=== PATIENT | female | born 1930 | race Caucasian/White ===

== ENCOUNTER 2017-01-27 23:42 | Inpatient (IN) | payer MEDICARE ==
[~2017-01-27] VITALS: Ht 165.1 cm; Wt 85.0 kg
[2017-01-28] MEDS ORDERED: MORPHINE SULFATE 4 MG/ML, 1ML ONE (00:15)
[2017-01-28] MEDS ORDERED: ONDANSETRON 2MG/ML, 2ML ONE ×2 (00:15→13:11)
[2017-01-28] MEDS ORDERED: ONDANSETRON 2MG/ML, 2ML IVPush ONE (00:30)
[2017-01-28] MEDS ORDERED: MORPHINE SULFATE 4 MG/ML, 1ML IVPush PRN ×2 (00:30→03:30)
[2017-01-28] MEDS ORDERED: SODIUM CHLORIDE 0.9% 1,000ML IVBOLUS ONE ×2 (00:30→03:30)
[2017-01-28 00:41] LABS: BLOOD UREA NITROGEN 15 mg/dL (7-18)
[2017-01-28 00:53] LABS: HEMATOCRIT 37.1 % (34.6-47.8); HEMOGLOBIN 12.5 g/dL (11.7-16.4); WHITE BLOOD COUNT 7.7 x10^3/uL (3.4-10)
[2017-01-28 01:04] LABS: ASPARTATE AMINO TRANSFERASE 34 U/L (15-37)
[2017-01-28] MEDS ORDERED: ATOR20TA PO (01:05)
[2017-01-28] MEDS ORDERED: GABA300C10 PO (01:05)
[2017-01-28] MEDS ORDERED: AMIO200T42 PO (01:05)
[2017-01-28] MEDS ORDERED: ASPI-515 PO (01:05)
[2017-01-28] MEDS ORDERED: CYAN100063 PEG (01:05)
[2017-01-28] MEDS ORDERED: RIVA15TA PO (01:05)
[2017-01-28] MEDS ORDERED: FLUO10CA7 PO (01:05)
[2017-01-28] MEDS ORDERED: ALPR0.254 PO (01:05)
[2017-01-28] MEDS ORDERED: LEVO50TA5 PO (01:05)
[2017-01-28] MEDS ORDERED: METO-99 PO (01:05)
[2017-01-28 01:14] LABS: IS PT STATUS REG ER OR PRE ER? YES
[2017-01-28] MEDS ORDERED: hydrALAzine 20 MG/ML, 1ML IV ONE (01:30)
[2017-01-28] MEDS ORDERED: OMNIPAQUE 350 MG/ML, 100ML BOTTLE ONE (01:33)
[2017-01-28] MEDS ORDERED: hydrALAzine 20 MG/ML, 1ML ONE (01:43)
[2017-01-28] MEDS ORDERED: SODIUM CHLORIDE 0.9% 1,000 ML IV ONE (03:07)
[2017-01-28] MEDS ORDERED: PIPERACILLIN/TAZO/PMX 3.375GM 50 ML ONE (03:26)
[2017-01-28] MEDS ORDERED: PIPERACILLIN/TAZO/PMX 3.375GM 50 ML IVPB ONE (03:30)
[2017-01-28] MEDS ORDERED: ONDANSETRON 2MG/ML, 2ML IVPush PRN ×3 (03:30→13:30)
[2017-01-28] MEDS ORDERED: hydrALAzine 20 MG/ML, 1ML IVPush PRN (04:00)
[2017-01-28] MEDS ORDERED: PROMETHAZINE 25 MG/ML, 1ML IM PRN (04:00)
[2017-01-28] MEDS ORDERED: BISACODYL 10 MG SUPP PR PRN (04:00)
[2017-01-28] MEDS: PIPERACILLIN/TAZO/PMX 3.375GM 50 ML IV SCH ×4 (04:00→23:11)
[2017-01-28] MEDS: LACTATED RINGERS 1,000 ML IV SCH ×2 (04:50→21:41)
[2017-01-28] MEDS: XANAX MC SCH ×3 (05:00→21:00)
[2017-01-28 07:05] VITALS: BP 174/75
[2017-01-28] MEDS: CYANOCOBALAMIN 1,000 MCG TABLET PEG SCH (07:57)
[2017-01-28] MEDS: FLUOXETINE 10 MG CAP PO SCH (07:57)
[2017-01-28] MEDS: METOPROLOL TARTRATE 100 MG TABLET PO SCH ×2 (07:58→20:41)
[2017-01-28] MEDS: LEVOTHYROXINE 50 MCG TABLET PO SCH (07:58)
[2017-01-28] MEDS: GABAPENTIN 300 MG CAPSULE PO SCH (07:58)
[2017-01-28] MEDS: AMIODARONE 200 MG TABLET PO SCH (07:58)
[2017-01-28] MEDS: morphine SULFATE 10 MG/ML, 1ML IVPush PRN ×2 (08:05→11:57)
[2017-01-28] MEDS ORDERED: BUPIVACAINE/PF-EPI 0.5% 1:200K ONE (09:24)
[2017-01-28 09:37] LABS: HEMATOCRIT 37.9 % (34.6-47.8); HEMOGLOBIN 12.6 g/dL (11.7-16.4); WHITE BLOOD COUNT 10.7 x10^3/uL (3.4-10)
[2017-01-28 09:43] LABS: BLOOD UREA NITROGEN 12 mg/dL (7-18)
[2017-01-28 09:47] LABS: ASPARTATE AMINO TRANSFERASE 23 U/L (15-37)
[2017-01-28] MEDS ORDERED: FENTANYL PF 250 MCG/5ML ONE (12:31)
[2017-01-28] MEDS ORDERED: MIDAZOLAM 1 MG/ML, 2ML ONE (12:31)
[2017-01-28] MEDS ORDERED: DEXAMETHASONE 4 MG/ML, 1ML ONE (13:11)
[2017-01-28] MEDS ORDERED: GLYCOPYRROLATE 0.2MG/1ML ONE (13:11)
[2017-01-28] MEDS ORDERED: SUCCINYLCHOLINE 20 MG/ML, 10ML ONE (13:11)
[2017-01-28] MEDS ORDERED: NEOSTIGMINE 1 MG/ML, 10ML ONE (13:11)
[2017-01-28] MEDS ORDERED: PROPOFOL 10 MG/ML, 20ML ONE (13:11)
[2017-01-28] MEDS ORDERED: ROCURONIUM 10 MG/ML ONE (13:11)
[2017-01-28] MEDS ORDERED: MIDAZOLAM 1 MG/ML, 2ML IV PRN (13:30)
[2017-01-28] MEDS ORDERED: FENTANYL PF 100 MCG/2ML IV PRN (13:30)
[2017-01-28] MEDS ORDERED: HYDROmorphone 1 MG/ML, 1ML IV PRN (13:30)
[2017-01-28 18:50] VITALS: BP 149/72
[2017-01-28] MEDS: ATORVASTATIN 20 MG TABLET PO SCH (20:41)
[2017-01-29] VITALS: BP 139/65
[2017-01-29] MEDS: XANAX MC SCH (04:07)
[2017-01-29 04:41] VITALS: BP 140/55
[2017-01-29] MEDS: morphine SULFATE 10 MG/ML, 1ML IVPush PRN ×2 (05:07→21:44)
[2017-01-29] MEDS: PIPERACILLIN/TAZO/PMX 3.375GM 50 ML IV SCH ×4 (05:17→23:37)
[2017-01-29 05:43] LABS: HEMATOCRIT 36.2 % (34.6-47.8); HEMOGLOBIN 12.1 g/dL (11.7-16.4); WHITE BLOOD COUNT 12.6 x10^3/uL (3.4-10)
[2017-01-29 05:55] LABS: BLOOD UREA NITROGEN 12 mg/dL (7-18)
[2017-01-29 08:19] VITALS: BP 131/64
[2017-01-29] MEDS: AMIODARONE 200 MG TABLET PO SCH (08:44)
[2017-01-29] MEDS: FLUOXETINE 10 MG CAP PO SCH (08:44)
[2017-01-29] MEDS: METOPROLOL TARTRATE 100 MG TABLET PO SCH ×2 (08:44→20:29)
[2017-01-29] MEDS: CYANOCOBALAMIN 1,000 MCG TABLET PEG SCH (08:44)
[2017-01-29] MEDS: GABAPENTIN 300 MG CAPSULE PO SCH (08:45)
[2017-01-29] MEDS: LEVOTHYROXINE 50 MCG TABLET PO SCH (08:45)
[2017-01-29] MEDS: LACTATED RINGERS 1,000 ML IV SCH (12:55)
[2017-01-29 13:41] VITALS: BP 107/51
[2017-01-29 19:27] VITALS: BP 166/70
[2017-01-29] MEDS: ATORVASTATIN 20 MG TABLET PO SCH (20:29)
[2017-01-30 03:55] VITALS: BP_SYST 105; BP_SYST 190; BP_DIAS 58; BP_DIAS 72
[2017-01-30] MEDS: LACTATED RINGERS 1,000 ML IV SCH (05:07)
[2017-01-30] MEDS: PIPERACILLIN/TAZO/PMX 3.375GM 50 ML IV SCH (05:07)
[2017-01-30 05:46] LABS: HEMATOCRIT 32.7 % (34.6-47.8); HEMOGLOBIN 10.9 g/dL (11.7-16.4); WHITE BLOOD COUNT 9.9 x10^3/uL (3.4-10)
[2017-01-30 06:10] LABS: ASPARTATE AMINO TRANSFERASE 31 U/L (15-37); BLOOD UREA NITROGEN 18 mg/dL (7-18)
[2017-01-30 08:22] VITALS: BP 137/52
[2017-01-30] MEDS: CYANOCOBALAMIN 1,000 MCG TABLET PEG SCH (08:52)
[2017-01-30] MEDS: AMIODARONE 200 MG TABLET PO SCH (08:53)
[2017-01-30] MEDS: GABAPENTIN 300 MG CAPSULE PO SCH (08:53)
[2017-01-30] MEDS: METOPROLOL TARTRATE 100 MG TABLET PO SCH (08:53)
[2017-01-30] MEDS: FLUOXETINE 10 MG CAP PO SCH (08:53)
[2017-01-30] MEDS: LEVOTHYROXINE 50 MCG TABLET PO SCH (08:54)
[2017-01-30] MEDS ORDERED: AMOX1TAB12 PO (10:26)
[2017-01-30] MEDS ORDERED: ACID1TAB7 PO (10:26)
[2017-01-30] MEDS ORDERED: LACTOBACILLUS CHEW TABLET PO SCH (16:00)
[2017-01-30] MEDS ORDERED: AMOXICILLIN/CLAV 875-125MG TABLET PO SCH (21:00)
== END 2017-01-30 17:05 | disposition home health service (06) | DRG 417 ==
LOC: ED 23:59 → EDIP 01-28 03:07 → 4NOR 01-28 04:25
PROVIDERS: ATTEND Internal Medicine
PROC: 0T9B70Z Drainage of Bladder with Drainage Device, Via Natural or Artificial Opening (ICD-10-PCS; 2017-01-28)
PROC: 0FT44ZZ Resection of Gallbladder, Percutaneous Endoscopic Approach (ICD-10-PCS; principal; 2017-01-28 13:15)
DX: K80.00 Calculus of gallbladder with acute cholecystitis without obstruction (principal); N17.0 Acute kidney failure with tubular necrosis; E44.0 Moderate protein-calorie malnutrition; I11.9 Hypertensive heart disease without heart failure; I48.2 Chronic atrial fibrillation; J84.10 Pulmonary fibrosis, unspecified; K82.1 Hydrops of gallbladder; E53.8 Deficiency of other specified B group vitamins; Z68.31 Body mass index [BMI] 31.0-31.9, adult; D63.8 Anemia in other chronic diseases classified elsewhere; E03.9 Hypothyroidism, unspecified; E78.00 Pure hypercholesterolemia, unspecified; E78.5 Hyperlipidemia, unspecified; F01.50 Vascular dementia, unspecified severity, without behavioral disturbance, psychotic disturbance, mood disturbance, and anxiety; I69.320 Aphasia following cerebral infarction; Z79.01 Long term (current) use of anticoagulants; Z87.891 Personal history of nicotine dependence; Z88.8 Allergy status to other drugs, medicaments and biological substances
CPT/HCPCS: 36415; 71010; 74177; 76700; 80048; 80053; 81003; 83690; 84484; 85025; 85610; 85730; 88304; 93005; 96361; 96374; 96375; J1100; J2250; J2405; J2543; J2704; J2710; J3010; J3490; Q9967; J0330; J0360; J2270; J7030; J7120

== ENCOUNTER 2017-02-01 11:44 | Inpatient (IN) | payer MEDICARE ==
[~2017-02-01] VITALS: Ht 154.9 cm; Wt 88.2 kg
[~2017-02-01 11:44] MED LIST: ACID1TAB7 PO; ALPR0.254 PO; AMIO200T42 PO; AMOX1TAB12 PO; ASPI-515 PO; ATOR20TA PO; CYAN100063 PEG; FLUO10CA7 PO; GABA300C10 PO; LEVO50TA5 PO; METO-99 PO; RIVA15TA PO
[2017-02-01] MEDS ORDERED: SODIUM CHLORIDE 0.9% 1,000 ML IV ONE (11:46)
[2017-02-01] MEDS ORDERED: HYDROmorphone 1 MG/ML, 1ML ONE ×2 (12:00→14:19)
[2017-02-01] MEDS ORDERED: SODIUM CHLORIDE FLUSH 10ML SYR IVF ONE (12:00)
[2017-02-01] MEDS ORDERED: ONDANSETRON 2MG/ML, 2ML IVPush ONE (12:00)
[2017-02-01] MEDS ORDERED: ONDANSETRON 2MG/ML, 2ML ONE (12:00)
[2017-02-01] MEDS: HYDROmorphone 1 MG/ML, 1ML IVPush PRN ×2 (12:06→14:29)
[2017-02-01 12:34] LABS: HEMATOCRIT 33.4 % (34.6-47.8); WHITE BLOOD COUNT 7.4 x10^3/uL (3.4-10)
[2017-02-01 12:45] LABS: ASPARTATE AMINO TRANSFERASE 23 U/L (15-37); BLOOD UREA NITROGEN 14 mg/dL (7-18)
[2017-02-01] MEDS ORDERED: OMNIPAQUE 350 MG/ML, 100ML BOTTLE ONE (13:20)
[2017-02-01] MEDS ORDERED: CIPROFLOXACIN/PMX 400MG/200ML 200 ML IV ONE (14:30)
[2017-02-01] MEDS ORDERED: METRONIDAZOLE PMX 500MG/100ML 100 ML IV ONE (14:30)
[2017-02-01] MEDS ORDERED: NS + 20MEQ KCL 1,000 ML IV SCH (15:06)
[2017-02-01] MEDS ORDERED: CIPROFLOXACIN/PMX 400MG/200ML 200 ML ONE (15:06)
[2017-02-01] MEDS ORDERED: POLYETHYLENE GLYCOL 17 GM PACKET PO PRN (15:30)
[2017-02-01] MEDS ORDERED: DOCUSATE 100 MG CAPSULE PO PRN (15:30)
[2017-02-01] MEDS ORDERED: ONDANSETRON 2MG/ML, 2ML IVPush PRN (15:30)
[2017-02-01] MEDS ORDERED: morphine SULFATE 10 MG/ML, 1ML IVPush PRN (15:30)
[2017-02-01] MEDS: LACTOBACILLUS CHEW TABLET PO SCH ×2 (16:00→20:41)
[2017-02-01] MEDS: CIPROFLOXACIN/PMX 400MG/200ML 200 ML IV SCH (16:09)
[2017-02-01 16:22] VITALS: BP 147/38
[2017-02-01] MEDS: METRONIDAZOLE PMX 500MG/100ML 100 ML IV SCH (17:20)
[2017-02-01 20:05] VITALS: BP 145/72
[2017-02-01] MEDS: ATORVASTATIN 20 MG TABLET PO SCH (20:44)
[2017-02-01] MEDS: METOPROLOL TARTRATE 100 MG TABLET PO SCH (20:46)
[2017-02-02] MEDS: METRONIDAZOLE PMX 500MG/100ML 100 ML IV SCH ×3 (00:17→18:35)
[2017-02-02 02:32] VITALS: BP 148/66
[2017-02-02] MEDS: CIPROFLOXACIN/PMX 400MG/200ML 200 ML IV SCH ×2 (04:32→16:32)
[2017-02-02] MEDS: LEVOTHYROXINE 50 MCG TABLET PO SCH (04:35)
[2017-02-02 07:10] VITALS: BP 161/69
[2017-02-02 07:30] VITALS: BP 163/62
[2017-02-02] MEDS: AMIODARONE 200 MG TABLET PO SCH (07:35)
[2017-02-02] MEDS: ASPIRIN 81 MG TABLET EC PO SCH (07:35)
[2017-02-02] MEDS: METOPROLOL TARTRATE 100 MG TABLET PO SCH ×2 (07:35→20:31)
[2017-02-02] MEDS: LACTOBACILLUS CHEW TABLET PO SCH ×3 (07:36→20:30)
[2017-02-02] MEDS: GABAPENTIN 300 MG CAPSULE PO SCH (07:36)
[2017-02-02] MEDS: RIVAROXABAN 15 MG TABLET PO SCH (07:36)
[2017-02-02] MEDS: FLUOXETINE 10 MG CAP PO SCH (07:37)
[2017-02-02 14:09] VITALS: BP 162/84
[2017-02-02 19:32] VITALS: BP 148/74
[2017-02-02] MEDS: ATORVASTATIN 20 MG TABLET PO SCH (20:30)
[2017-02-03 02:16] VITALS: BP 110/75
[2017-02-03] MEDS: METRONIDAZOLE PMX 500MG/100ML 100 ML IV SCH ×2 (03:02→10:47)
[2017-02-03] MEDS: CIPROFLOXACIN/PMX 400MG/200ML 200 ML IV SCH ×2 (05:13→16:39)
[2017-02-03] MEDS: LEVOTHYROXINE 50 MCG TABLET PO SCH (05:13)
[2017-02-03 07:58] VITALS: BP 156/69
[2017-02-03] MEDS: AMIODARONE 200 MG TABLET PO SCH (08:27)
[2017-02-03] MEDS: GABAPENTIN 300 MG CAPSULE PO SCH (08:27)
[2017-02-03] MEDS: FLUOXETINE 10 MG CAP PO SCH (08:27)
[2017-02-03] MEDS: LACTOBACILLUS CHEW TABLET PO SCH ×2 (08:27→16:39)
[2017-02-03] MEDS: ASPIRIN 81 MG TABLET EC PO SCH (08:27)
[2017-02-03] MEDS: RIVAROXABAN 15 MG TABLET PO SCH (08:29)
[2017-02-03] MEDS: METOPROLOL TARTRATE 100 MG TABLET PO SCH (08:30)
[2017-02-03] MEDS ORDERED: METR500T PO (13:59)
[2017-02-03] MEDS ORDERED: CIPR500T3 PO (13:59)
[2017-02-03 14:30] VITALS: BP 147/78
== END 2017-02-03 18:21 | disposition home or self-care (01) | DRG 392 ==
LOC: ED 14:07 → EDIP 14:18 → SUATTDRO 14:54 → 4NOR 15:47
PROVIDERS: ADMIT Family Medicine; ATTEND Family Medicine
PROC: 0T9B70Z Drainage of Bladder with Drainage Device, Via Natural or Artificial Opening (ICD-10-PCS; principal; 2017-02-01)
DX: A09 Infectious gastroenteritis and colitis, unspecified (principal); J84.9 Interstitial pulmonary disease, unspecified; E44.0 Moderate protein-calorie malnutrition; D68.69 Other thrombophilia; I48.91 Unspecified atrial fibrillation; I11.9 Hypertensive heart disease without heart failure; K76.0 Fatty (change of) liver, not elsewhere classified; E03.9 Hypothyroidism, unspecified; E78.5 Hyperlipidemia, unspecified; E78.00 Pure hypercholesterolemia, unspecified; K82.8 Other specified diseases of gallbladder; Z66 Do not resuscitate; Z79.01 Long term (current) use of anticoagulants; Z87.891 Personal history of nicotine dependence; Z90.49 Acquired absence of other specified parts of digestive tract; I69.322 Dysarthria following cerebral infarction; Z68.36 Body mass index [BMI] 36.0-36.9, adult; Z90.710 Acquired absence of both cervix and uterus; Z88.5 Allergy status to narcotic agent; Z88.8 Allergy status to other drugs, medicaments and biological substances
CPT/HCPCS: 36415; 74022; 74177; 80053; 81003; 83690; 85025; 87040; 87324; 96361; 96374; 96375; 96376; J0744; J1170; J2405; J3480; Q9967; J7030

== ENCOUNTER 2017-12-30 13:12 | Inpatient (IN) | payer MEDICARE ==
[~2017-12-30] VITALS: Ht 167.6 cm; Wt 79.1 kg
[~2017-12-30 13:12] MED LIST changes: +CEFD300C37 PO; +CIPR500T3 PO; +FURO-92 PO; +METR500T PO; +NITR100C PO; +PHEN100T90 PO; +POTA10TA31 PO
[2017-12-30 13:49] LABS: BASOPHILS # (AUTO) 0.02 x10^3/uL (0-0.1); BASOPHILS % (AUTO) 0 % (0-1); EOSINOPHILS # (AUTO) 0.09 x10^3/uL (0-0.4); EOSINOPHILS % (AUTO) 1 % (1-7); LYMPHOCYTES # (AUTO) 1.45 x10^3/uL (1-3.4); LYMPHOCYTES % (AUTO) 22 % (22-44); MD NO; MEAN CORPUSCULAR HEMOGLOBIN 31.2 pg (27.0-34.8); MEAN CORPUSCULAR HGB CONC 33.8 g/dL (32.4-35.8); MEAN CORPUSCULAR VOLUME 92.2 fL (80-100); MONOCYTES # (AUTO) 0.41 x10^3/uL (0.2-0.8); MONOCYTES % (AUTO) 6 % (2-9); NEUTROPHILS # (AUTO) 4.76 x10^3/uL (1.8-6.8); NEUTROPHILS % (AUTO) 71 % (42-75); PLATELET COUNT 266 x10^3/uL (130-400); RED BLOOD COUNT 4.12 x10^6/uL (3.82-5.3); RED CELL DISTRIBUTION WIDTH 13.8 % (9.6-15.2)
[2017-12-30 14:02] LABS: ALBUMIN 3.2 g/dL (3.4-5.0); ANION GAP 9 mmol/L (5-15); CALCIUM 8.8 mg/dL (8.5-10.1); CHLORIDE 110 mmol/L (98-107)
[2017-12-30 14:05] LABS: ALANINE AMINOTRANSFERASE 49 U/L (12-78); ALKALINE PHOSPHATASE 93 U/L (45-117); BILIRUBIN,TOTAL 0.6 mg/dL (0.2-1.0); TOTAL PROTEIN 6.5 g/dL (6.4-8.2)
[2017-12-30 14:10] LABS: CULTURE INDICATED? YES; MICROSCOPIC INDICATED
[2017-12-30] MEDS ORDERED: CEFTRIAXONE PMX 1GM/50ML 50 ML ONE (14:51)
[2017-12-30] MEDS ORDERED: SODIUM CHLORIDE 0.9% 1,000ML IVBOLUS ONE (15:00)
[2017-12-30] MEDS ORDERED: CEFTRIAXONE PMX 1GM/50ML 50 ML IV ONE (15:00)
[2017-12-30] MEDS ORDERED: FLUT15.88 NAS (15:51)
[2017-12-30] MEDS ORDERED: LOSA100T6 PO (15:51)
[2017-12-30] MEDS ORDERED: HYDR-3342 PO (15:51)
[2017-12-30] MEDS ORDERED: METO25TA91 PO (15:51)
[2017-12-30] MEDS ORDERED: PHARMACY MAY ADJ FOR RENAL FX MC PRN (16:00)
[2017-12-30] MEDS ORDERED: PHENAZOPYRIDINE 100 MG TABLET PO PRN (16:00)
[2017-12-30] MEDS ORDERED: DOCUSATE 100 MG CAPSULE PO PRN (16:00)
[2017-12-30] MEDS ORDERED: ONDANSETRON ODT 4 MG PO PRN (16:00)
[2017-12-30] MEDS ORDERED: POLYETHYLENE GLYCOL 17 GM PACKET PO PRN (16:00)
[2017-12-30] MEDS ORDERED: ALPRAZOLAM 0.25 MG PO PRN (16:00)
[2017-12-30 16:49] LABS: THYROID STIMULATING HORMONE 4.98 mIU/L (0.358-3.740)
[2017-12-30 17:58] VITALS: BP 214/77
[2017-12-30] MEDS ORDERED: CEFTRIAXONE PMX 1GM/50ML 50 ML IV SCH (18:00)
[2017-12-30] MEDS ORDERED: ALPRAZOLAM 0.25 MG MC SCH (18:00)
[2017-12-30] MEDS: LACTOBACILLUS CHEW TABLET PO SCH ×2 (18:02→21:00)
[2017-12-30] MEDS: SODIUM CHLORIDE 0.9% 1,000 ML IV SCH (18:02)
[2017-12-30 19:25] VITALS: BP 178/62
[2017-12-30] MEDS: ATORVASTATIN 20 MG TABLET PO SCH (21:00)
[2017-12-30] MEDS: GABAPENTIN 300 MG CAPSULE PO SCH (21:00)
[2017-12-30] MEDS: FLUTICASONE NASAL SPRAY 16GM NAS SCH (21:00)
[2017-12-30] MEDS ORDERED: METOPROLOL TARTRATE 100 MG TABLET PO SCH (21:00)
[2017-12-30] MEDS: hydrALAzine 20 MG/ML, 1ML IV PRN (21:59)
[2017-12-31 00:30] VITALS: BP 196/94
[2017-12-31] MEDS: hydrALAzine 20 MG/ML, 1ML IV PRN (00:37)
[2017-12-31 01:40] VITALS: BP 165/72
[2017-12-31] MEDS: SODIUM CHLORIDE 0.9% 1,000 ML IV SCH (03:57)
[2017-12-31 04:58] LABS: BASOPHILS # (AUTO) 0.01 x10^3/uL (0-0.1); BASOPHILS % (AUTO) 0 % (0-1); EOSINOPHILS # (AUTO) 0.18 x10^3/uL (0-0.4); EOSINOPHILS % (AUTO) 3 % (1-7); LYMPHOCYTES # (AUTO) 0.96 x10^3/uL (1-3.4); LYMPHOCYTES % (AUTO) 16 % (22-44); MD NO; MEAN CORPUSCULAR HEMOGLOBIN 31.2 pg (27.0-34.8); MEAN CORPUSCULAR HGB CONC 33.7 g/dL (32.4-35.8); MEAN CORPUSCULAR VOLUME 92.4 fL (80-100); MEAN PLATELET VOLUME 9.7 fL (7.4-10.4); MONOCYTES # (AUTO) 0.47 x10^3/uL (0.2-0.8); MONOCYTES % (AUTO) 8 % (2-9); NEUTROPHILS # (AUTO) 4.51 x10^3/uL (1.8-6.8); NEUTROPHILS % (AUTO) 74 % (42-75); PLATELET COUNT 249 x10^3/uL (130-400); RED BLOOD COUNT 4.06 x10^6/uL (3.82-5.3); RED CELL DISTRIBUTION WIDTH 13.7 % (9.6-15.2)
[2017-12-31 05:06] LABS: ANION GAP 10 mmol/L (5-15); CALCIUM 8.6 mg/dL (8.5-10.1); CHLORIDE 112 mmol/L (98-107)
[2017-12-31 05:07] LABS: CREATININE 1.27 mg/dL (0.55-1.02)
[2017-12-31] MEDS: LEVOTHYROXINE 50 MCG TABLET PO SCH (05:33)
[2017-12-31 07:20] VITALS: BP 153/69
[2017-12-31] MEDS: CYANOCOBALAMIN 1,000 MCG TABLET PEG SCH (09:00)
[2017-12-31] MEDS: METOPROLOL SUCCINATE 25 MG TAB.ER.24H PO SCH (09:00)
[2017-12-31 09:30] VITALS: BP 131/62
[2017-12-31] MEDS: LACTOBACILLUS CHEW TABLET PO SCH ×3 (09:48→20:36)
[2017-12-31] MEDS: FLUOXETINE 10 MG CAP PO SCH (09:49)
[2017-12-31] MEDS: RIVAROXABAN 15 MG TABLET PO SCH (09:49)
[2017-12-31] MEDS: ASPIRIN 81 MG TABLET EC PO SCH (09:49)
[2017-12-31] MEDS: AMIODARONE 200 MG TABLET PO SCH (09:49)
[2017-12-31 14:45] VITALS: BP 164/64
[2017-12-31 19:11] VITALS: BP 183/69
[2017-12-31] MEDS: ATORVASTATIN 20 MG TABLET PO SCH (20:36)
[2017-12-31] MEDS: GABAPENTIN 300 MG CAPSULE PO SCH (20:36)
[2017-12-31] MEDS: FLUTICASONE NASAL SPRAY 16GM NAS SCH (21:01)
[2018-01-01 01:17] VITALS: BP 173/50
[2018-01-01 04:42] LABS: ALANINE AMINOTRANSFERASE 39 U/L (12-78); ALBUMIN 2.9 g/dL (3.4-5.0); ANION GAP 9 mmol/L (5-15); CALCIUM 8.6 mg/dL (8.5-10.1); CHLORIDE 112 mmol/L (98-107); CREATININE 1.35 mg/dL (0.55-1.02)
[2018-01-01 04:45] LABS: ALKALINE PHOSPHATASE 82 U/L (45-117); BILIRUBIN,TOTAL 0.6 mg/dL (0.2-1.0); TOTAL PROTEIN 5.9 g/dL (6.4-8.2)
[2018-01-01] MEDS: LEVOTHYROXINE 50 MCG TABLET PO SCH (06:09)
[2018-01-01 08:25] VITALS: BP 182/85
[2018-01-01] MEDS: AMIODARONE 200 MG TABLET PO SCH (08:56)
[2018-01-01] MEDS: METOPROLOL SUCCINATE 25 MG TAB.ER.24H PO SCH (08:56)
[2018-01-01] MEDS: RIVAROXABAN 15 MG TABLET PO SCH (08:57)
[2018-01-01] MEDS: LACTOBACILLUS CHEW TABLET PO SCH ×3 (08:57→21:27)
[2018-01-01] MEDS: CYANOCOBALAMIN 1,000 MCG TABLET PEG SCH (08:57)
[2018-01-01] MEDS: FLUOXETINE 10 MG CAP PO SCH (08:57)
[2018-01-01] MEDS: ASPIRIN 81 MG TABLET EC PO SCH (08:57)
[2018-01-01 09:05] VITALS: BP 166/77
[2018-01-01 13:17] VITALS: BP 169/69
[2018-01-01] MEDS: CEFTRIAXONE 1,000 MG in SODIUM CHLORIDE 0.9% 50 ML IV SCH (16:54)
[2018-01-01 20:00] VITALS: BP 155/71
[2018-01-01] MEDS: GABAPENTIN 300 MG CAPSULE PO SCH (21:27)
[2018-01-01] MEDS: ATORVASTATIN 20 MG TABLET PO SCH (21:27)
[2018-01-01] MEDS: FLUTICASONE NASAL SPRAY 16GM NAS SCH (21:28)
[2018-01-02 01:48] VITALS: BP 164/67
[2018-01-02 05:36] LABS: ALBUMIN 2.8 g/dL (3.4-5.0); ANION GAP 9 mmol/L (5-15); CALCIUM 8.7 mg/dL (8.5-10.1); CHLORIDE 112 mmol/L (98-107)
[2018-01-02 05:41] LABS: ALANINE AMINOTRANSFERASE 38 U/L (12-78); ALKALINE PHOSPHATASE 85 U/L (45-117); BILIRUBIN,TOTAL 0.7 mg/dL (0.2-1.0); CREATININE 1.27 mg/dL (0.55-1.02); TOTAL PROTEIN 5.9 g/dL (6.4-8.2)
[2018-01-02] MEDS: LEVOTHYROXINE 50 MCG TABLET PO SCH (06:06)
[2018-01-02 07:06] VITALS: BP 182/72
[2018-01-02] MEDS ORDERED: CEFD300C37 PO (07:46)
[2018-01-02] MEDS ORDERED: LACT1CAP24 PO (07:46)
[2018-01-02] MEDS: ASPIRIN 81 MG TABLET EC PO SCH (07:53)
[2018-01-02] MEDS: RIVAROXABAN 15 MG TABLET PO SCH (07:53)
[2018-01-02] MEDS: FLUOXETINE 10 MG CAP PO SCH (07:53)
[2018-01-02] MEDS: LACTOBACILLUS CHEW TABLET PO SCH ×2 (07:53→17:01)
[2018-01-02] MEDS: METOPROLOL SUCCINATE 25 MG TAB.ER.24H PO SCH (07:53)
[2018-01-02] MEDS: CYANOCOBALAMIN 1,000 MCG TABLET PEG SCH (07:53)
[2018-01-02] MEDS: AMIODARONE 200 MG TABLET PO SCH (07:53)
[2018-01-02 07:55] VITALS: BP 175/73
[2018-01-02 12:37] VITALS: BP 152/70
[2018-01-02] MEDS: CEFTRIAXONE 1,000 MG in SODIUM CHLORIDE 0.9% 50 ML IV SCH (17:01)
== END 2018-01-02 18:05 | disposition home or self-care (01) | DRG 682 ==
LOC: ED 15:55 → EDIP 15:56 → ED 16:56 → 3NE 17:14
PROVIDERS: ADMIT Hospitalist; ATTEND Internal Medicine
PROC: 0T9B70Z Drainage of Bladder with Drainage Device, Via Natural or Artificial Opening (ICD-10-PCS; principal; 2017-12-30)
DX: N17.0 Acute kidney failure with tubular necrosis (principal); G93.40 Encephalopathy, unspecified; E43 Unspecified severe protein-calorie malnutrition; D68.59 Other primary thrombophilia; N39.0 Urinary tract infection, site not specified; Z68.28 Body mass index [BMI] 28.0-28.9, adult; Z88.8 Allergy status to other drugs, medicaments and biological substances; E03.9 Hypothyroidism, unspecified; E78.00 Pure hypercholesterolemia, unspecified; F02.80 Dementia in other diseases classified elsewhere, unspecified severity, without behavioral disturbance, psychotic disturbance, mood disturbance, and anxiety; G30.1 Alzheimer's disease with late onset; I11.9 Hypertensive heart disease without heart failure; I48.91 Unspecified atrial fibrillation; Z66 Do not resuscitate; R47.02 Dysphasia; Z79.01 Long term (current) use of anticoagulants; Z86.73 Personal history of transient ischemic attack (TIA), and cerebral infarction without residual deficits; Z87.891 Personal history of nicotine dependence; Z90.710 Acquired absence of both cervix and uterus
CPT/HCPCS: 36415; 71045; 80048; 80053; 81001; 82550; 82607; 84443; 85025; 87040; 87077; 87086; 87186; 93005; 99285; J0696; J0360; J7030

== ENCOUNTER 2018-03-01 17:36 | Emergency (ER) | payer MEDICARE ==
[~2018-03-01] VITALS: Ht 167.6 cm; Wt 70.0 kg
[~2018-03-01 17:36] MED LIST changes: +FLUT15.88 NAS; +HYDR-3342 PO; +LACT1CAP24 PO; +LOSA100T7 PO; +METO25TA91 PO
[2018-03-01] MEDS ORDERED: KETOROLAC 30 MG/1 ML IM ONE (18:00)
[2018-03-01] MEDS ORDERED: PLEASE ENTER HEIGHT AND WEIGHT MC SCH (18:00)
[2018-03-01 18:02] LABS: BASOPHILS # (AUTO) 0.08 x10^3/uL (0-0.1); BASOPHILS % (AUTO) 1 % (0-1); EOSINOPHILS # (AUTO) 0.13 x10^3/uL (0-0.4); EOSINOPHILS % (AUTO) 2 % (1-7); LYMPHOCYTES # (AUTO) 1.17 x10^3/uL (1-3.4); LYMPHOCYTES % (AUTO) 17 % (22-44); MD NO; MEAN CORPUSCULAR HEMOGLOBIN 31.5 pg (27.0-34.8); MEAN CORPUSCULAR HGB CONC 34.4 g/dL (32.4-35.8); MEAN CORPUSCULAR VOLUME 91.6 fL (80-100); MEAN PLATELET VOLUME 9.1 fL (7.4-10.4); MONOCYTES # (AUTO) 0.57 x10^3/uL (0.2-0.8); MONOCYTES % (AUTO) 8 % (2-9); NEUTROPHILS # (AUTO) 4.98 x10^3/uL (1.8-6.8); NEUTROPHILS % (AUTO) 72 % (42-75); PLATELET COUNT 236 x10^3/uL (130-400); RED BLOOD COUNT 4.09 x10^6/uL (3.82-5.3); RED CELL DISTRIBUTION WIDTH 14.1 % (9.6-15.2)
[2018-03-01 18:15] LABS: ALANINE AMINOTRANSFERASE 48 U/L (12-78); ANION GAP 4 mmol/L (5-15); CALCIUM 8.1 mg/dL (8.5-10.1); CHLORIDE 112 mmol/L (98-107)
[2018-03-01 18:18] LABS: ALKALINE PHOSPHATASE 146 U/L (45-117); BILIRUBIN,TOTAL 0.4 mg/dL (0.2-1.0); CREATININE 1.66 mg/dL (0.55-1.02); TOTAL PROTEIN 6.4 g/dL (6.4-8.2)
[2018-03-01 18:30] LABS: MICROSCOPIC INDICATED
[2018-03-01 18:31] LABS: CULTURE INDICATED? YES
[2018-03-01 19:05] VITALS: BP 104/54
== END 2018-03-01 19:35 | disposition home or self-care (01) ==
LOC: ED 18:40
DX: R41.82 Altered mental status, unspecified (principal); N30.00 Acute cystitis without hematuria; I10 Essential (primary) hypertension; E78.00 Pure hypercholesterolemia, unspecified; E03.9 Hypothyroidism, unspecified; Z90.49 Acquired absence of other specified parts of digestive tract; Z90.710 Acquired absence of both cervix and uterus; Z87.891 Personal history of nicotine dependence
CPT/HCPCS: 36415; 70450; 80053; 81001; 85025; 87077; 87086; 87186; 99285

== ENCOUNTER 2018-03-03 22:05 | Inpatient (IN) | payer MEDICARE ==
[~2018-03-03] VITALS: Ht 162.6 cm; Wt 79.8 kg
[2018-03-03 23:19] LABS: ALANINE AMINOTRANSFERASE 42 U/L (12-78); ALBUMIN 2.9 g/dL (3.4-5.0); ANION GAP 7 mmol/L (5-15); CALCIUM 8.9 mg/dL (8.5-10.1); CHLORIDE 108 mmol/L (98-107); CREATININE 1.58 mg/dL (0.55-1.02)
[2018-03-03 23:21] LABS: ALKALINE PHOSPHATASE 103 U/L (45-117); BILIRUBIN,TOTAL 1.5 mg/dL (0.2-1.0); TOTAL PROTEIN 6.6 g/dL (6.4-8.2)
[2018-03-03 23:24] LABS: MEAN CORPUSCULAR HEMOGLOBIN 31.3 pg (27.0-34.8); MEAN CORPUSCULAR VOLUME 91.9 fL (80-100); MEAN PLATELET VOLUME 9.9 fL (7.4-10.4); PLATELET COUNT 220 x10^3/uL (130-400); RED BLOOD COUNT 4.23 x10^6/uL (3.82-5.3)
[2018-03-03 23:49] LABS: BASOPHILS # (AUTO) 0.01 x10^3/uL (0-0.1); BASOPHILS % (AUTO) 0 % (0-1); EOSINOPHILS # (AUTO) 0.02 x10^3/uL (0-0.4); EOSINOPHILS % (AUTO) 0 % (1-7); LYMPHOCYTES # (AUTO) 0.43 x10^3/uL (1-3.4); LYMPHOCYTES % (AUTO) 2 % (22-44); MD SCAN; MONOCYTES # (AUTO) 0.31 x10^3/uL (0.2-0.8); MONOCYTES % (AUTO) 1 % (2-9); NEUTROPHILS # (AUTO) 21.23 x10^3/uL (1.8-6.8); NEUTROPHILS % (AUTO) 97 % (42-75)
[2018-03-04] MEDS ORDERED: POLYETHYLENE GLYCOL 17 GM PACKET PO PRN
[2018-03-04] MEDS ORDERED: BISACODYL 10 MG SUPP PR PRN
[2018-03-04] MEDS ORDERED: CEFTRIAXONE 1,000 MG in SODIUM CHLORIDE 0.9% 50 ML IV ONE
[2018-03-04] MEDS ORDERED: ONDANSETRON ODT 4 MG PO PRN
[2018-03-04] MEDS ORDERED: SODIUM CHLORIDE FLUSH 10ML SYR IVF ONE
[2018-03-04] MEDS ORDERED: SODIUM CHLORIDE 0.9% 1,000ML IVBOLUS ONE
[2018-03-04] MEDS ORDERED: CEFTRIAXONE PMX 1GM/50ML 50 ML ONE (00:02)
[2018-03-04 00:30] VITALS: BP 146/77
[2018-03-04 00:35] LABS: CULTURE INDICATED? YES; MICROSCOPIC INDICATED
[2018-03-04 01:00] VITALS: BP 158/73
[2018-03-04] MEDS: ATORVASTATIN 20 MG TABLET PO SCH ×2 (01:39→20:46)
[2018-03-04] MEDS: GABAPENTIN 300 MG CAPSULE PO SCH ×2 (01:39→20:46)
[2018-03-04] MEDS: SODIUM CHLORIDE 0.9% 1,000 ML IV SCH ×2 (01:40→16:37)
[2018-03-04] MEDS: AMPICILLIN 500 MG in SODIUM CHLORIDE 0.9% 100 ML IV SCH ×3 (01:46→13:33)
[2018-03-04 04:57] LABS: MEAN CORPUSCULAR HEMOGLOBIN 31.5 pg (27.0-34.8); MEAN CORPUSCULAR HGB CONC 34.1 g/dL (32.4-35.8); MEAN CORPUSCULAR VOLUME 92.3 fL (80-100); MEAN PLATELET VOLUME 9.9 fL (7.4-10.4); PLATELET COUNT 209 x10^3/uL (130-400); RED BLOOD COUNT 4.01 x10^6/uL (3.82-5.3); RED CELL DISTRIBUTION WIDTH 14.4 % (9.6-15.2)
[2018-03-04 04:58] LABS: ALBUMIN 2.7 g/dL (3.4-5.0); ANION GAP 10 mmol/L (5-15); CALCIUM 8.3 mg/dL (8.5-10.1); CHLORIDE 110 mmol/L (98-107)
[2018-03-04 05:02] LABS: ALANINE AMINOTRANSFERASE 38 U/L (12-78); ALKALINE PHOSPHATASE 92 U/L (45-117); BILIRUBIN,TOTAL 1.2 mg/dL (0.2-1.0); CREATININE 1.48 mg/dL (0.55-1.02)
[2018-03-04 06:19] LABS: BASOPHILS # (AUTO) 0.03 x10^3/uL (0-0.1); BASOPHILS % (AUTO) 0 % (0-1); EOSINOPHILS # (AUTO) 0.06 x10^3/uL (0-0.4); EOSINOPHILS % (AUTO) 0 % (1-7); LYMPHOCYTES # (AUTO) 0.58 x10^3/uL (1-3.4); LYMPHOCYTES % (AUTO) 3 % (22-44); MD SCAN; MONOCYTES # (AUTO) 0.58 x10^3/uL (0.2-0.8); MONOCYTES % (AUTO) 3 % (2-9); NEUTROPHILS # (AUTO) 17.49 x10^3/uL (1.8-6.8); NEUTROPHILS % (AUTO) 93 % (42-75)
[2018-03-04 08:34] VITALS: BP 142/60
[2018-03-04] MEDS: CYANOCOBALAMIN 1,000 MCG TABLET PEG SCH (08:58)
[2018-03-04] MEDS: AMIODARONE 200 MG TABLET PO SCH (08:59)
[2018-03-04] MEDS: FLUOXETINE 10 MG CAP PO SCH (08:59)
[2018-03-04] MEDS: ASPIRIN 81 MG TABLET EC PO SCH (08:59)
[2018-03-04] MEDS: LOSARTAN 50MG TABLET PO SCH (08:59)
[2018-03-04] MEDS: METOPROLOL SUCCINATE 25 MG TAB.ER.24H PO SCH (08:59)
[2018-03-04] MEDS: LEVOTHYROXINE 50 MCG TABLET PO SCH (08:59)
[2018-03-04] MEDS: SENNA/DOCUSATE TABLET PO SCH (09:00)
[2018-03-04] MEDS: RIVAROXABAN 15 MG TABLET PO SCH (09:00)
[2018-03-04 13:58] VITALS: BP 143/58
[2018-03-04 16:30] VITALS: BP 165/58
[2018-03-04 16:55] LABS: TROPONIN I < 0.015 ng/mL (0.000-0.045)
[2018-03-04] MEDS ORDERED: MORPHINE SULFATE 4 MG/ML, 1ML IVPush ONE (17:00)
[2018-03-04] MEDS ORDERED: VANCOMYCIN PER PHARMACY MC PRN (17:00)
[2018-03-04] MEDS ORDERED: PHARMACOKINETIC CONSULTATION MC ONE (17:30)
[2018-03-04] MEDS ORDERED: VANCOMYCIN 1,600 MG in SODIUM CHLORIDE 0.9% 250 ML IV ONE (17:30)
[2018-03-04] MEDS ORDERED: PHARMACOKINETIC MONITORING MC PRN (17:30)
[2018-03-04] MEDS ORDERED: MAALOX/HYOSCYAMINE/LIDOCAINE 45 ML BTL PO ONE (17:30)
[2018-03-04 20:35] VITALS: BP 147/72
[2018-03-04] MEDS: FLUTICASONE NASAL SPRAY 16GM NAS SCH ×2 (20:46)
[2018-03-05 01:06] VITALS: BP 166/86
[2018-03-05 04:18] LABS: BASOPHILS # (AUTO) 0.04 x10^3/uL (0-0.1); BASOPHILS % (AUTO) 0 % (0-1); EOSINOPHILS # (AUTO) 0.27 x10^3/uL (0-0.4); EOSINOPHILS % (AUTO) 3 % (1-7); LYMPHOCYTES # (AUTO) 0.71 x10^3/uL (1-3.4); LYMPHOCYTES % (AUTO) 7 % (22-44); MD NO; MEAN CORPUSCULAR HEMOGLOBIN 30.7 pg (27.0-34.8); MEAN CORPUSCULAR HGB CONC 33.3 g/dL (32.4-35.8); MEAN PLATELET VOLUME 9.7 fL (7.4-10.4); MONOCYTES # (AUTO) 0.63 x10^3/uL (0.2-0.8); MONOCYTES % (AUTO) 6 % (2-9); NEUTROPHILS # (AUTO) 8.93 x10^3/uL (1.8-6.8); NEUTROPHILS % (AUTO) 84 % (42-75); PLATELET COUNT 184 x10^3/uL (130-400); RED BLOOD COUNT 3.79 x10^6/uL (3.82-5.3); RED CELL DISTRIBUTION WIDTH 14.3 % (9.6-15.2)
[2018-03-05 04:23] LABS: ALBUMIN 2.5 g/dL (3.4-5.0); ANION GAP 6 mmol/L (5-15); CALCIUM 8.2 mg/dL (8.5-10.1); CHLORIDE 112 mmol/L (98-107); CREATININE 1.26 mg/dL (0.55-1.02)
[2018-03-05] MEDS: SODIUM CHLORIDE 0.9% 1,000 ML IV SCH (05:41)
[2018-03-05 07:05] LABS: TROPONIN I < 0.015 ng/mL (0.000-0.045)
[2018-03-05 07:11] VITALS: BP 182/72
[2018-03-05] MEDS: SENNA/DOCUSATE TABLET PO SCH (07:42)
[2018-03-05] MEDS: RIVAROXABAN 15 MG TABLET PO SCH (07:42)
[2018-03-05] MEDS: FLUOXETINE 10 MG CAP PO SCH (07:42)
[2018-03-05] MEDS: ASPIRIN 81 MG TABLET EC PO SCH (07:42)
[2018-03-05] MEDS: CYANOCOBALAMIN 1,000 MCG TABLET PEG SCH (07:43)
[2018-03-05] MEDS: AMIODARONE 200 MG TABLET PO SCH (07:43)
[2018-03-05] MEDS: METOPROLOL SUCCINATE 25 MG TAB.ER.24H PO SCH ×2 (07:43→09:03)
[2018-03-05] MEDS: ACETAMINOPHEN 325 MG TABLET PO PRN ×2 (07:43→13:01)
[2018-03-05] MEDS: LEVOTHYROXINE 50 MCG TABLET PO SCH (07:43)
[2018-03-05] MEDS: LOSARTAN 50MG TABLET PO SCH (07:43)
[2018-03-05] MEDS ORDERED: ISOSORBIDE DINITRATE 10 MG TABLET PO SCH (09:00)
[2018-03-05 09:04] VITALS: BP 163/71
[2018-03-05] MEDS ORDERED: METO25TA91 PO (12:28)
[2018-03-05] MEDS ORDERED: ISOS20TA58 PO (12:28)
[2018-03-05 16:00] VITALS: BP 134/68
[2018-03-05] MEDS: ISOSORBIDE DINITRATE 20 MG TABLET PO SCH ×2 (16:34→20:33)
[2018-03-05 20:25] VITALS: BP 182/74
[2018-03-05] MEDS: FLUTICASONE NASAL SPRAY 16GM NAS SCH (20:33)
[2018-03-05] MEDS: GABAPENTIN 300 MG CAPSULE PO SCH (20:33)
[2018-03-05] MEDS: ACETAMINOPHEN 325 MG TABLET PO SCH ×2 (20:33→20:52)
[2018-03-05] MEDS: ATORVASTATIN 20 MG TABLET PO SCH (20:33)
[2018-03-05] MEDS ORDERED: SODIUM CHLORIDE 0.9% 1,000 ML IV SCH (23:50)
[2018-03-06 02:27] VITALS: BP 188/67
[2018-03-06] MEDS: ACETAMINOPHEN 325 MG TABLET PO SCH ×2 (04:59→11:06)
[2018-03-06] MEDS ORDERED: VANCOMYCIN 1,600 MG in SODIUM CHLORIDE 0.9% 250 ML IV SCH (05:00)
[2018-03-06 07:37] VITALS: BP 189/66
[2018-03-06] MEDS: LEVOTHYROXINE 50 MCG TABLET PO SCH (07:47)
[2018-03-06] MEDS: AMIODARONE 200 MG TABLET PO SCH (07:47)
[2018-03-06] MEDS: CYANOCOBALAMIN 1,000 MCG TABLET PEG SCH (07:47)
[2018-03-06] MEDS: ISOSORBIDE DINITRATE 20 MG TABLET PO SCH (07:48)
[2018-03-06] MEDS: METOPROLOL SUCCINATE 25 MG TAB.ER.24H PO SCH (07:48)
[2018-03-06] MEDS: FLUOXETINE 10 MG CAP PO SCH (07:48)
[2018-03-06] MEDS: ASPIRIN 81 MG TABLET EC PO SCH (07:48)
[2018-03-06] MEDS: SENNA/DOCUSATE TABLET PO SCH (07:48)
[2018-03-06] MEDS: LOSARTAN 50MG TABLET PO SCH (07:48)
[2018-03-06] MEDS: RIVAROXABAN 15 MG TABLET PO SCH (07:48)
[2018-03-06 10:00] VITALS: BP 134/61
[2018-03-06 14:15] VITALS: BP 156/85
== END 2018-03-06 14:22 | disposition short-term general hospital (02) | DRG 871 ==
LOC: ED 03-04 00:17 → EDIP 03-04 00:18 → 3NW 03-04 00:45
PROVIDERS: ADMIT Hospitalist; ATTEND Hospitalist
PROC: 0T9B70Z Drainage of Bladder with Drainage Device, Via Natural or Artificial Opening (ICD-10-PCS; principal; 2018-03-04)
DX: A41.9 Sepsis, unspecified organism (principal); I26.99 Other pulmonary embolism without acute cor pulmonale; G93.41 Metabolic encephalopathy; N39.0 Urinary tract infection, site not specified; E44.0 Moderate protein-calorie malnutrition; D68.69 Other thrombophilia; I48.92 Unspecified atrial flutter; N17.9 Acute kidney failure, unspecified; S06.0X0A Concussion without loss of consciousness, initial encounter; E03.9 Hypothyroidism, unspecified; E78.00 Pure hypercholesterolemia, unspecified; F03.90 Unspecified dementia, unspecified severity, without behavioral disturbance, psychotic disturbance, mood disturbance, and anxiety; R07.89 Other chest pain; G47.00 Insomnia, unspecified; I10 Essential (primary) hypertension; I45.10 Unspecified right bundle-branch block; I48.2 Chronic atrial fibrillation; R13.10 Dysphagia, unspecified; Z86.73 Personal history of transient ischemic attack (TIA), and cerebral infarction without residual deficits; Z90.710 Acquired absence of both cervix and uterus; Z96.612 Presence of left artificial shoulder joint; Z98.1 Arthrodesis status; W01.0XXA Fall on same level from slipping, tripping and stumbling without subsequent striking against object, initial encounter; Y93.89 Activity, other specified; Y92.89 Other specified places as the place of occurrence of the external cause; Y99.8 Other external cause status; Z68.30 Body mass index [BMI] 30.0-30.9, adult
CPT/HCPCS: 36415; 70450; 71045; 74176; 78582; 80048; 80053; 81001; 82040; 83605; 84145; 84484; 85025; 85379; 87040; 87077; 87086; 87186; 93005; 93970; 96365; 96375; 99285; G0378; J0696; J3370; A9540; A9558; C9898; J0290; J7030; J7050

== ENCOUNTER 2018-03-06 23:16 | Inpatient (IN) | payer MEDICARE ==
[~2018-03-06] VITALS: Ht 162.6 cm; Wt 80.4 kg
[~2018-03-06 23:16] MED LIST changes: +ISOS20TA58 PO
[2018-03-06 23:51] LABS: BASOPHILS # (AUTO) 0.01 x10^3/uL (0-0.1); BASOPHILS % (AUTO) 0 % (0-1); EOSINOPHILS # (AUTO) 0.13 x10^3/uL (0-0.4); EOSINOPHILS % (AUTO) 2 % (1-7); LYMPHOCYTES # (AUTO) 0.39 x10^3/uL (1-3.4); LYMPHOCYTES % (AUTO) 6 % (22-44); MD NO; MEAN CORPUSCULAR HGB CONC 33.8 g/dL (32.4-35.8); MEAN CORPUSCULAR VOLUME 91.6 fL (80-100); MEAN PLATELET VOLUME 9.1 fL (7.4-10.4); MONOCYTES # (AUTO) 0.08 x10^3/uL (0.2-0.8); MONOCYTES % (AUTO) 1 % (2-9); NEUTROPHILS # (AUTO) 5.63 x10^3/uL (1.8-6.8); NEUTROPHILS % (AUTO) 90 % (42-75); PLATELET COUNT 221 x10^3/uL (130-400); RED BLOOD COUNT 3.82 x10^6/uL (3.82-5.3)
[2018-03-07] LABS: INTERNATIONAL NORMALIZED RATIO 1.42 (0.93-1.1); PROTHROMBIN TIME 14.7 Seconds (9.6-11.5)
[2018-03-07 00:03] LABS: ALANINE AMINOTRANSFERASE 44 U/L (12-78); ALBUMIN 2.7 g/dL (3.4-5.0); ANION GAP 9 mmol/L (5-15); CALCIUM 8.3 mg/dL (8.5-10.1); CHLORIDE 113 mmol/L (98-107); CREATININE 1.25 mg/dL (0.55-1.02)
[2018-03-07 00:08] LABS: ALKALINE PHOSPHATASE 164 U/L (45-117); BILIRUBIN,TOTAL 1.1 mg/dL (0.2-1.0); TOTAL PROTEIN 6.1 g/dL (6.4-8.2); TROPONIN I < 0.015 ng/mL (0.000-0.045)
[2018-03-07] MEDS ORDERED: FUROSEMIDE 20 MG/2 ML IV ONE (02:00)
[2018-03-07] MEDS ORDERED: POTASSIUM CHLORIDE 20 MEQ TAB.ER.PRT PO ONE (02:00)
[2018-03-07] MEDS ORDERED: FUROSEMIDE 20 MG/2 ML ONE (02:07)
[2018-03-07] MEDS ORDERED: POTASSIUM CHLORIDE 20 MEQ TAB.ER.PRT ONE (02:07)
[2018-03-07] MEDS ORDERED: hydrALAzine 20 MG/ML, 1ML IVPush PRN (02:30)
[2018-03-07 03:10] VITALS: BP 103/51
[2018-03-07 05:33] LABS: CULTURE INDICATED? YES; MICROSCOPIC INDICATED
[2018-03-07 06:15] LABS: ANION GAP 11 mmol/L (5-15); CALCIUM 8.3 mg/dL (8.5-10.1); CHLORIDE 113 mmol/L (98-107); CREATININE 1.42 mg/dL (0.55-1.02)
[2018-03-07 07:48] VITALS: BP 126/56
[2018-03-07] MEDS: LOSARTAN 50MG TABLET PO SCH (08:12)
[2018-03-07] MEDS: LEVOTHYROXINE 50 MCG TABLET PO SCH (08:13)
[2018-03-07] MEDS: RIVAROXABAN 15 MG TABLET PO SCH (08:13)
[2018-03-07] MEDS: ASPIRIN 81 MG TABLET EC PO SCH (08:13)
[2018-03-07] MEDS: AMIODARONE 200 MG TABLET PO SCH (08:13)
[2018-03-07] MEDS: CYANOCOBALAMIN 1,000 MCG TABLET PEG SCH (08:13)
[2018-03-07] MEDS: FLUOXETINE 10 MG CAP PO SCH (08:13)
[2018-03-07] MEDS: METOPROLOL SUCCINATE 50 MG TAB.ER.24H PO SCH (08:14)
[2018-03-07] MEDS ORDERED: ISOSORBIDE DINITRATE 20 MG TABLET PO SCH (09:00)
[2018-03-07] MEDS ORDERED: VANCOMYCIN PMX 1GM/200ML 200 ML IV ONE (11:00)
[2018-03-07] MEDS ORDERED: VANCOMYCIN PER PHARMACY MC PRN (11:00)
[2018-03-07] MEDS ORDERED: PHARMACOKINETIC CONSULTATION MC ONE (11:30)
[2018-03-07] MEDS: DOXYCYCLINE 100MG TABLET PO SCH ×2 (11:30→21:00)
[2018-03-07] MEDS ORDERED: PHARMACOKINETIC MONITORING MC PRN (11:30)
[2018-03-07] MEDS: VANCOMYCIN 1,600 MG in SODIUM CHLORIDE 0.9% 250 ML IV SCH (12:10)
[2018-03-07 13:36] VITALS: BP 102/62
[2018-03-07 19:28] VITALS: BP 174/77
[2018-03-07] MEDS: GABAPENTIN 300 MG CAPSULE PO SCH (21:53)
[2018-03-07] MEDS: ATORVASTATIN 20 MG TABLET PO SCH (21:53)
[2018-03-07] MEDS: FLUTICASONE NASAL SPRAY 16GM NAS SCH (22:16)
[2018-03-07 23:01] VITALS: BP 180/75
[2018-03-07 23:02] VITALS: BP 189/72
[2018-03-08 02:33] VITALS: BP 139/71
[2018-03-08 07:35] VITALS: BP 175/73
[2018-03-08 07:54] LABS: ANION GAP 9 mmol/L (5-15); CALCIUM 8.5 mg/dL (8.5-10.1); CHLORIDE 113 mmol/L (98-107); CREATININE 1.15 mg/dL (0.55-1.02)
[2018-03-08] MEDS: CYANOCOBALAMIN 1,000 MCG TABLET PEG SCH (08:19)
[2018-03-08] MEDS: METOPROLOL SUCCINATE 50 MG TAB.ER.24H PO SCH (08:19)
[2018-03-08] MEDS: AMIODARONE 200 MG TABLET PO SCH (08:20)
[2018-03-08] MEDS: ASPIRIN 81 MG TABLET EC PO SCH (08:20)
[2018-03-08] MEDS: DOXYCYCLINE 100MG TABLET PO SCH ×2 (08:20→21:45)
[2018-03-08] MEDS: RIVAROXABAN 15 MG TABLET PO SCH (08:20)
[2018-03-08] MEDS: FLUOXETINE 10 MG CAP PO SCH (08:20)
[2018-03-08] MEDS: LOSARTAN 50MG TABLET PO SCH (08:20)
[2018-03-08] MEDS: LEVOTHYROXINE 50 MCG TABLET PO SCH (08:20)
[2018-03-08] MEDS ORDERED: MAGNESIUM SULFATE PMX 2GM/50ML 50 ML IV ONE (11:00)
[2018-03-08] MEDS ORDERED: POTASSIUM CHLORIDE 20 MEQ TAB.ER.PRT PO ONE (11:00)
[2018-03-08 14:31] VITALS: BP 142/68
[2018-03-08 19:38] VITALS: BP_SYST 176; BP_SYST 179; BP_DIAS 67; BP_DIAS 69
[2018-03-08] MEDS: GABAPENTIN 300 MG CAPSULE PO SCH (21:38)
[2018-03-08] MEDS: ATORVASTATIN 20 MG TABLET PO SCH (21:38)
[2018-03-08] MEDS: FLUTICASONE NASAL SPRAY 16GM NAS SCH (21:40)
[2018-03-08] MEDS: VANCOMYCIN 1,600 MG in SODIUM CHLORIDE 0.9% 250 ML IV SCH (23:51)
[2018-03-09] MEDS ORDERED: ALBUTEROL SULFATE 2.5 MG/3 ML ONE (00:43)
[2018-03-09 01:46] VITALS: BP 163/74
[2018-03-09 06:00] LABS: BASOPHILS # (AUTO) 0.03 x10^3/uL (0-0.1); BASOPHILS % (AUTO) 0 % (0-1); EOSINOPHILS # (AUTO) 0.18 x10^3/uL (0-0.4); EOSINOPHILS % (AUTO) 2 % (1-7); LYMPHOCYTES # (AUTO) 1.36 x10^3/uL (1-3.4); LYMPHOCYTES % (AUTO) 15 % (22-44); MD NO; MEAN CORPUSCULAR HGB CONC 33.6 g/dL (32.4-35.8); MEAN CORPUSCULAR VOLUME 92.1 fL (80-100); MEAN PLATELET VOLUME 9.1 fL (7.4-10.4); MONOCYTES % (AUTO) 7 % (2-9); NEUTROPHILS # (AUTO) 6.95 x10^3/uL (1.8-6.8); NEUTROPHILS % (AUTO) 76 % (42-75); PLATELET COUNT 245 x10^3/uL (130-400); RED BLOOD COUNT 3.67 x10^6/uL (3.82-5.3); RED CELL DISTRIBUTION WIDTH 14.6 % (9.6-15.2)
[2018-03-09 07:31] VITALS: BP 126/78
[2018-03-09] MEDS: RIVAROXABAN 15 MG TABLET PO SCH (09:28)
[2018-03-09] MEDS: FLUOXETINE 10 MG CAP PO SCH (09:28)
[2018-03-09] MEDS: CYANOCOBALAMIN 1,000 MCG TABLET PEG SCH (09:28)
[2018-03-09] MEDS: METOPROLOL SUCCINATE 50 MG TAB.ER.24H PO SCH (09:29)
[2018-03-09] MEDS: LEVOTHYROXINE 50 MCG TABLET PO SCH (09:29)
[2018-03-09] MEDS: DOXYCYCLINE 100MG TABLET PO SCH (09:29)
[2018-03-09] MEDS: AMIODARONE 200 MG TABLET PO SCH (09:29)
[2018-03-09] MEDS: LOSARTAN 50MG TABLET PO SCH (09:30)
[2018-03-09] MEDS: ASPIRIN 81 MG TABLET EC PO SCH (09:30)
[2018-03-09] MEDS ORDERED: FURO20TA3 PO (13:30)
[2018-03-09] MEDS ORDERED: DOXY100T PO (13:30)
== END 2018-03-09 15:30 | disposition home or self-care (01) | DRG 291 ==
LOC: SUATTDRO 03-07 01:44 → ED 03-07 02:18 → EDIP 03-07 02:25 → 5SO 03-07 02:39 → DCLOUNGE 03-09 14:37
PROVIDERS: ADMIT Hospitalist; ATTEND Hospitalist
DX: I11.0 Hypertensive heart disease with heart failure (principal); E43 Unspecified severe protein-calorie malnutrition; J81.1 Chronic pulmonary edema; I48.92 Unspecified atrial flutter; D68.69 Other thrombophilia; I50.33 Acute on chronic diastolic (congestive) heart failure
CPT/HCPCS: 36415; 71045; 80048; 80053; 81001; 83690; 83735; 83880; 84484; 85025; 85610; 87086; 93005; 93306; 94640; G0378; J3370; J0360; J1940; J3475; J7050

== ENCOUNTER 2018-04-26 16:36 | Inpatient (IN) | payer MEDICARE ==
[~2018-04-26] VITALS: Ht 165.1 cm; Wt 72.9 kg
[~2018-04-26 16:36] MED LIST changes: +DOXY100T PO; +FURO20TA3 PO
[2018-04-26] MEDS ORDERED: SODIUM CHLORIDE FLUSH 10ML SYR IVF ONE ×2 (17:30→19:00)
[2018-04-26 17:34] LABS: BASOPHILS # (AUTO) 0.02 x10^3/uL (0-0.1); BASOPHILS % (AUTO) 0 % (0-1); EOSINOPHILS # (AUTO) 0.12 x10^3/uL (0-0.4); EOSINOPHILS % (AUTO) 1 % (1-7); LYMPHOCYTES # (AUTO) 0.51 x10^3/uL (1-3.4); LYMPHOCYTES % (AUTO) 5 % (22-44); MD NO; MEAN CORPUSCULAR HEMOGLOBIN 31.8 pg (27.0-34.8); MEAN CORPUSCULAR HGB CONC 34.1 g/dL (32.4-35.8); MEAN CORPUSCULAR VOLUME 93.2 fL (80-100); MEAN PLATELET VOLUME 9.5 fL (7.4-10.4); MONOCYTES # (AUTO) 0.53 x10^3/uL (0.2-0.8); MONOCYTES % (AUTO) 5 % (2-9); NEUTROPHILS # (AUTO) 8.67 x10^3/uL (1.8-6.8); NEUTROPHILS % (AUTO) 88 % (42-75); PLATELET COUNT 249 x10^3/uL (130-400); RED BLOOD COUNT 3.75 x10^6/uL (3.82-5.3); RED CELL DISTRIBUTION WIDTH 14.6 % (9.6-15.2)
[2018-04-26 17:35] LABS: INTERNATIONAL NORMALIZED RATIO 1.11 (0.93-1.1); PROTHROMBIN TIME 11.5 Seconds (9.6-11.5)
[2018-04-26 17:36] LABS: ALANINE AMINOTRANSFERASE 45 U/L (12-78); ALBUMIN 2.9 g/dL (3.4-5.0); ANION GAP 11 mmol/L (5-15); CALCIUM 7.9 mg/dL (8.5-10.1); CHLORIDE 111 mmol/L (98-107)
[2018-04-26 17:38] LABS: ALKALINE PHOSPHATASE 122 U/L (45-117); BILIRUBIN,TOTAL 0.4 mg/dL (0.2-1.0); CREATININE 1.68 mg/dL (0.55-1.02)
[2018-04-26] MEDS ORDERED: SODIUM CHLORIDE 0.9% 1,000 ML IV ONE (18:45)
[2018-04-26] MEDS ORDERED: SODIUM CHLORIDE 0.9% 1,000ML IVBOLUS ONE (19:00)
[2018-04-26] MEDS ORDERED: DOXE50CA PO (19:20)
[2018-04-26] MEDS ORDERED: GABA300C10 PO (19:20)
[2018-04-26] MEDS ORDERED: POTA10TA11 PO (19:20)
[2018-04-26] MEDS ORDERED: ALPR0.254 PO (19:20)
[2018-04-26 19:27] LABS: MICROSCOPIC AUTO
[2018-04-26 19:30] LABS: CULTURE INDICATED? YES
[2018-04-26] MEDS ORDERED: SODIUM CHLORIDE FLUSH 10ML SYR IVF PRN (19:30)
[2018-04-26 22:28] VITALS: BP 143/66
[2018-04-26] MEDS: CEFTRIAXONE PMX 1GM/50ML 50 ML IV SCH (23:49)
[2018-04-27 00:53] VITALS: BP 148/66
[2018-04-27] MEDS ORDERED: DOXEPIN 25 MG CAPSULE PO PRN (01:30)
[2018-04-27 07:46] VITALS: BP 143/64
[2018-04-27] MEDS: PANTOPRAZOLE 40 MG IV IVPush SCH ×2 (08:24→18:07)
[2018-04-27] MEDS: CYANOCOBALAMIN 1,000 MCG TABLET PEG SCH (08:26)
[2018-04-27] MEDS: ISOSORBIDE DINITRATE 20 MG TABLET PO SCH ×3 (08:27→20:57)
[2018-04-27] MEDS: METOPROLOL SUCCINATE 50 MG TAB.ER.24H PO SCH ×2 (08:27→12:02)
[2018-04-27] MEDS: LOSARTAN 50MG TABLET PO SCH (08:27)
[2018-04-27] MEDS: AMIODARONE 200 MG TABLET PO SCH (08:27)
[2018-04-27] MEDS: POTASSIUM CHLORIDE 10 MEQ TABLET.ER PO SCH (08:27)
[2018-04-27] MEDS: FUROSEMIDE 20 MG TABLET PO SCH (08:27)
[2018-04-27] MEDS: FLUOXETINE 10 MG CAP PO SCH (08:27)
[2018-04-27] MEDS ORDERED: LEVOTHYROXINE 50 MCG TABLET PO SCH (09:00)
[2018-04-27] MEDS ORDERED: OXYcodone 5 MG/5 ML ORAL.SOL UDC PO PRN (13:30)
[2018-04-27] MEDS ORDERED: ONDANSETRON 2MG/ML, 2ML IV PRN (13:30)
[2018-04-27] MEDS ORDERED: ALBUTEROL SULFATE 2.5 MG/3 ML NPPB PRN (13:30)
[2018-04-27] MEDS ORDERED: LORazepam 2 MG/ML, 1ML IVPush PRN (13:30)
[2018-04-27] MEDS ORDERED: MIDAZOLAM 1 MG/ML, 2ML IV PRN (13:30)
[2018-04-27] MEDS ORDERED: LABETALOL 5MG/ML, 20ML IV PRN (13:30)
[2018-04-27] MEDS ORDERED: EPHEDRINE 50 MG/ML, 1ML IVPush PRN (13:30)
[2018-04-27] MEDS ORDERED: PROMETHAZINE 12.5 MG SUPP PR PRN (13:30)
[2018-04-27] MEDS ORDERED: MEPERIDINE/PF 25MG/0.5ML IVPush PRN (13:30)
[2018-04-27] MEDS ORDERED: FENTANYL PF 100 MCG/2ML IV PRN (13:30)
[2018-04-27] MEDS ORDERED: PROMETHAZINE 25 MG/ML, 1ML IV PRN (13:30)
[2018-04-27] MEDS ORDERED: HYDROmorphone 1 MG/ML, 1ML IV PRN (13:30)
[2018-04-27] MEDS ORDERED: HALOPERIDOL 5 MG/ML IV PRN (13:30)
[2018-04-27] MEDS ORDERED: hydrALAzine 20 MG/ML, 1ML IV PRN (13:30)
[2018-04-27] MEDS ORDERED: ONDANSETRON ODT 8 MG PO PRN (13:30)
[2018-04-27] MEDS ORDERED: LOSARTAN 50MG TABLET PO ONE (14:00)
[2018-04-27] MEDS ORDERED: FUROSEMIDE 10 MG/ML ORAL SOL PO ONE (14:00)
[2018-04-27] MEDS ORDERED: AMIODARONE 200 MG TABLET PO ONE (14:00)
[2018-04-27] MEDS ORDERED: FLUOXETINE 10 MG CAP PO ONE (14:00)
[2018-04-27] MEDS ORDERED: POTASSIUM CHLORIDE 10 MEQ TABLET.ER PO ONE (14:00)
[2018-04-27] MEDS ORDERED: LEVOTHYROXINE 50 MCG TABLET PO ONE (14:00)
[2018-04-27 14:55] VITALS: BP 146/64
[2018-04-27] MEDS ORDERED: PROPOFOL 10 MG/ML, 20ML ONE (15:18)
[2018-04-27 20:45] VITALS: BP 145/69
[2018-04-27] MEDS: ATORVASTATIN 20 MG TABLET PO SCH (20:56)
[2018-04-27] MEDS: GABAPENTIN 300 MG CAPSULE PO SCH (20:57)
[2018-04-27] MEDS: CEFTRIAXONE PMX 1GM/50ML 50 ML IV SCH (23:27)
[2018-04-28 02:23] VITALS: BP 163/66
[2018-04-28 03:11] LABS: BASOPHILS # (AUTO) 0.03 x10^3/uL (0-0.1); BASOPHILS % (AUTO) 0 % (0-1); EOSINOPHILS # (AUTO) 0.11 x10^3/uL (0-0.4); EOSINOPHILS % (AUTO) 1 % (1-7); LYMPHOCYTES # (AUTO) 1.24 x10^3/uL (1-3.4); LYMPHOCYTES % (AUTO) 15 % (22-44); MD NO; MEAN CORPUSCULAR HEMOGLOBIN 31.5 pg (27.0-34.8); MEAN CORPUSCULAR HGB CONC 33.7 g/dL (32.4-35.8); MEAN CORPUSCULAR VOLUME 93.3 fL (80-100); MEAN PLATELET VOLUME 10.3 fL (7.4-10.4); MONOCYTES % (AUTO) 11 % (2-9); NEUTROPHILS # (AUTO) 5.89 x10^3/uL (1.8-6.8); NEUTROPHILS % (AUTO) 72 % (42-75); PLATELET COUNT 204 x10^3/uL (130-400); RED BLOOD COUNT 3.51 x10^6/uL (3.82-5.3); RED CELL DISTRIBUTION WIDTH 13.8 % (9.6-15.2)
[2018-04-28 03:18] LABS: ANION GAP 8 mmol/L (5-15); CALCIUM 8.1 mg/dL (8.5-10.1); CHLORIDE 110 mmol/L (98-107); CREATININE 1.29 mg/dL (0.55-1.02)
[2018-04-28 05:20] VITALS: BP 163/74
[2018-04-28] MEDS: LEVOTHYROXINE 50 MCG TABLET PO SCH (05:21)
[2018-04-28] MEDS: METOPROLOL SUCCINATE 50 MG TAB.ER.24H PO SCH ×2 (05:22→08:28)
[2018-04-28 08:05] VITALS: BP 162/82
[2018-04-28] MEDS: FLUOXETINE 10 MG CAP PO SCH (08:25)
[2018-04-28] MEDS: POTASSIUM CHLORIDE 10 MEQ TABLET.ER PO SCH (08:25)
[2018-04-28] MEDS: AMIODARONE 200 MG TABLET PO SCH (08:26)
[2018-04-28] MEDS: LOSARTAN 50MG TABLET PO SCH (08:27)
[2018-04-28] MEDS: CYANOCOBALAMIN 1,000 MCG TABLET PEG SCH (08:27)
[2018-04-28] MEDS: PANTOPRAZOLE 40 MG IV IVPush SCH ×2 (08:27→17:58)
[2018-04-28] MEDS: ISOSORBIDE DINITRATE 20 MG TABLET PO SCH ×3 (08:27→21:18)
[2018-04-28] MEDS: FUROSEMIDE 20 MG TABLET PO SCH (08:27)
[2018-04-28 14:05] VITALS: BP 138/65
[2018-04-28] MEDS ORDERED: GOLYTELY 4,000ML ORAL.SOL PO ONE (18:00)
[2018-04-28 19:05] VITALS: BP 131/59
[2018-04-28] MEDS: ATORVASTATIN 20 MG TABLET PO SCH (21:17)
[2018-04-28] MEDS: GABAPENTIN 300 MG CAPSULE PO SCH (21:17)
[2018-04-29] MEDS: CEFTRIAXONE PMX 1GM/50ML 50 ML IV SCH (00:08)
[2018-04-29 01:56] VITALS: BP 159/64
[2018-04-29 05:32] VITALS: BP 135/61
[2018-04-29] MEDS: LEVOTHYROXINE 50 MCG TABLET PO SCH (05:33)
[2018-04-29] MEDS: METOPROLOL SUCCINATE 50 MG TAB.ER.24H PO SCH (05:34)
[2018-04-29] MEDS: PANTOPRAZOLE 40 MG IV IVPush SCH (08:17)
[2018-04-29 08:19] VITALS: BP 115/54
[2018-04-29] MEDS ORDERED: FENTANYL PF 100 MCG/2ML ONE (09:04)
[2018-04-29] MEDS ORDERED: MIDAZOLAM 1 MG/ML, 5ML ONE (09:04)
[2018-04-29] MEDS ORDERED: NITROFURANTOIN (MACROBID) 100 MG CAPSULE PO SCH (12:00)
[2018-04-29] MEDS: ISOSORBIDE DINITRATE 20 MG TABLET PO SCH ×3 (12:05→21:24)
[2018-04-29] MEDS: POTASSIUM CHLORIDE 10 MEQ TABLET.ER PO SCH (12:05)
[2018-04-29] MEDS: CYANOCOBALAMIN 1,000 MCG TABLET PEG SCH (12:06)
[2018-04-29] MEDS: FLUOXETINE 10 MG CAP PO SCH (12:06)
[2018-04-29] MEDS: LOSARTAN 50MG TABLET PO SCH (12:07)
[2018-04-29] MEDS: AMIODARONE 200 MG TABLET PO SCH (12:10)
[2018-04-29] MEDS: FUROSEMIDE 20 MG TABLET PO SCH (12:10)
[2018-04-29] MEDS: SULFAMETH./TRIMETHOPRIM SS 400MG/80MG TABLET PO SCH ×2 (12:18→21:23)
[2018-04-29 12:25] VITALS: BP 136/64
[2018-04-29 17:05] VITALS: BP 143/54
[2018-04-29] MEDS ORDERED: PANTOPROZOLE 40MG TABLET ONE (17:59)
[2018-04-29] MEDS: PANTOPROZOLE 40MG TABLET PO SCH (18:02)
[2018-04-29 20:13] VITALS: BP 118/57
[2018-04-29] MEDS: GABAPENTIN 300 MG CAPSULE PO SCH (21:23)
[2018-04-29] MEDS: ATORVASTATIN 20 MG TABLET PO SCH (21:23)
[2018-04-29] MEDS ORDERED: DIPHENHYDRAMINE 25 MG CAPSULE PO ONE (22:30)
[2018-04-30 05:19] VITALS: BP 106/77
[2018-04-30] MEDS: METOPROLOL SUCCINATE 50 MG TAB.ER.24H PO SCH (05:28)
[2018-04-30] MEDS: PANTOPROZOLE 40MG TABLET PO SCH ×2 (05:28→17:00)
[2018-04-30] MEDS: LEVOTHYROXINE 50 MCG TABLET PO SCH (05:28)
[2018-04-30 05:41] LABS: ALBUMIN 2.4 g/dL (3.4-5.0); ANION GAP 8 mmol/L (5-15); CHLORIDE 109 mmol/L (98-107); CREATININE 1.35 mg/dL (0.55-1.02)
[2018-04-30 05:53] LABS: BASOPHILS # (AUTO) 0.02 x10^3/uL (0-0.1); BASOPHILS % (AUTO) 0 % (0-1); EOSINOPHILS # (AUTO) 0.19 x10^3/uL (0-0.4); EOSINOPHILS % (AUTO) 4 % (1-7); LYMPHOCYTES # (AUTO) 1.14 x10^3/uL (1-3.4); LYMPHOCYTES % (AUTO) 22 % (22-44); MD NO; MEAN CORPUSCULAR HEMOGLOBIN 31.6 pg (27.0-34.8); MEAN CORPUSCULAR HGB CONC 34.1 g/dL (32.4-35.8); MEAN CORPUSCULAR VOLUME 92.7 fL (80-100); MEAN PLATELET VOLUME 9.2 fL (7.4-10.4); MONOCYTES # (AUTO) 0.54 x10^3/uL (0.2-0.8); MONOCYTES % (AUTO) 11 % (2-9); NEUTROPHILS # (AUTO) 3.31 x10^3/uL (1.8-6.8); NEUTROPHILS % (AUTO) 64 % (42-75); PLATELET COUNT 208 x10^3/uL (130-400); RED BLOOD COUNT 3.29 x10^6/uL (3.82-5.3); RED CELL DISTRIBUTION WIDTH 13.6 % (9.6-15.2)
[2018-04-30] MEDS ORDERED: PANT40TA5 PO ×3 (06:08→09:36)
[2018-04-30] MEDS ORDERED: SULF-16 PO (06:08)
[2018-04-30 08:28] VITALS: BP 169/77
[2018-04-30] MEDS: SULFAMETH./TRIMETHOPRIM SS 400MG/80MG TABLET PO SCH ×2 (08:30→22:01)
[2018-04-30] MEDS: CYANOCOBALAMIN 1,000 MCG TABLET PEG SCH (08:30)
[2018-04-30] MEDS: FLUOXETINE 10 MG CAP PO SCH (08:30)
[2018-04-30] MEDS: AMIODARONE 200 MG TABLET PO SCH (08:30)
[2018-04-30] MEDS: FUROSEMIDE 20 MG TABLET PO SCH (08:30)
[2018-04-30] MEDS: ISOSORBIDE DINITRATE 20 MG TABLET PO SCH ×3 (08:30→22:02)
[2018-04-30] MEDS: LOSARTAN 50MG TABLET PO SCH (08:30)
[2018-04-30] MEDS: POTASSIUM CHLORIDE 10 MEQ TABLET.ER PO SCH (08:30)
[2018-04-30 14:00] VITALS: BP 104/54
[2018-04-30] MEDS ORDERED: RIVAROXABAN 15 MG TABLET PO SCH (17:00)
[2018-04-30 19:51] VITALS: BP 101/49
[2018-04-30 20:26] VITALS: BP 130/66
[2018-04-30 22:00] VITALS: BP 116/61
[2018-04-30] MEDS: ATORVASTATIN 20 MG TABLET PO SCH (22:01)
[2018-04-30] MEDS: GABAPENTIN 300 MG CAPSULE PO SCH (22:01)
[2018-05-01 02:40] VITALS: BP 141/62
[2018-05-01] MEDS: PANTOPROZOLE 40MG TABLET PO SCH (05:52)
[2018-05-01] MEDS: LEVOTHYROXINE 50 MCG TABLET PO SCH (05:52)
[2018-05-01] MEDS: METOPROLOL SUCCINATE 50 MG TAB.ER.24H PO SCH (05:52)
[2018-05-01 06:54] VITALS: BP 107/43
[2018-05-01] MEDS: AMIODARONE 200 MG TABLET PO SCH (09:00)
[2018-05-01] MEDS: LOSARTAN 50MG TABLET PO SCH (09:23)
[2018-05-01] MEDS: ISOSORBIDE DINITRATE 20 MG TABLET PO SCH (09:24)
[2018-05-01] MEDS: FLUOXETINE 10 MG CAP PO SCH (09:24)
[2018-05-01] MEDS: CYANOCOBALAMIN 1,000 MCG TABLET PEG SCH (09:24)
[2018-05-01] MEDS: SULFAMETH./TRIMETHOPRIM SS 400MG/80MG TABLET PO SCH (09:24)
[2018-05-01] MEDS: POTASSIUM CHLORIDE 10 MEQ TABLET.ER PO SCH (09:24)
[2018-05-01] MEDS: FUROSEMIDE 20 MG TABLET PO SCH (09:24)
[2018-05-01 12:25] VITALS: BP 100/47
== END 2018-05-01 15:03 | DRG 377 ==
LOC: ED 17:24 → EDIP 19:03 → 4EST 21:08
PROVIDERS: ADMIT Internal Medicine; ATTEND Internal Medicine
PROC: 0T9B70Z Drainage of Bladder with Drainage Device, Via Natural or Artificial Opening (ICD-10-PCS; principal; 2018-04-26)
PROC: 0DJ08ZZ Inspection of Upper Intestinal Tract, Via Natural or Artificial Opening Endoscopic (ICD-10-PCS; 2018-04-27)
PROC: 0DJD8ZZ Inspection of Lower Intestinal Tract, Via Natural or Artificial Opening Endoscopic (ICD-10-PCS; 2018-04-29)
DX: K29.01 Acute gastritis with bleeding (principal); G93.41 Metabolic encephalopathy; E43 Unspecified severe protein-calorie malnutrition; N17.9 Acute kidney failure, unspecified; D62 Acute posthemorrhagic anemia; N39.0 Urinary tract infection, site not specified; I42.9 Cardiomyopathy, unspecified; K64.1 Second degree hemorrhoids; Z96.612 Presence of left artificial shoulder joint; I48.0 Paroxysmal atrial fibrillation; I11.0 Hypertensive heart disease with heart failure; E03.9 Hypothyroidism, unspecified; F03.90 Unspecified dementia, unspecified severity, without behavioral disturbance, psychotic disturbance, mood disturbance, and anxiety; I50.9 Heart failure, unspecified; K57.30 Diverticulosis of large intestine without perforation or abscess without bleeding; K29.60 Other gastritis without bleeding; Z98.1 Arthrodesis status; Z90.710 Acquired absence of both cervix and uterus; Z87.11 Personal history of peptic ulcer disease; Z79.82 Long term (current) use of aspirin; Z79.01 Long term (current) use of anticoagulants; Z86.73 Personal history of transient ischemic attack (TIA), and cerebral infarction without residual deficits; Z87.440 Personal history of urinary (tract) infections; Z68.26 Body mass index [BMI] 26.0-26.9, adult; Z88.6 Allergy status to analgesic agent; Z88.8 Allergy status to other drugs, medicaments and biological substances
CPT/HCPCS: 36415; 70450; 80048; 80053; 81001; 82040; 83605; 83690; 85014; 85018; 85025; 85610; 85730; 86850; 86900; 87077; 87086; 87186; 93005; 96360; 96361; 99152; 99153; G0378; J0696; J2250; J2704; J3010; C9113; J7030; Q0163

== ENCOUNTER 2018-06-05 18:07 | Inpatient (IN) | payer MEDICARE ==
[~2018-06-05] VITALS: Ht 165.1 cm; Wt 76.9 kg
[~2018-06-05 18:07] MED LIST changes: +DOXE50CA PO; +PANT40TA5 PO; +POTA10TA11 PO; +SULF-16 PO
[2018-06-05] MEDS ORDERED: SODIUM CHLORIDE FLUSH 10ML SYR IVF ONE (18:30)
[2018-06-05 18:41] LABS: BASOPHILS # (AUTO) 0.05 x10^3/uL (0-0.1); BASOPHILS % (AUTO) 0 % (0-1); EOSINOPHILS # (AUTO) 0.32 x10^3/uL (0-0.4); EOSINOPHILS % (AUTO) 3 % (1-7); LYMPHOCYTES # (AUTO) 0.87 x10^3/uL (1-3.4); LYMPHOCYTES % (AUTO) 7 % (22-44); MD NO; MEAN CORPUSCULAR HEMOGLOBIN 29.7 pg (27.0-34.8); MEAN CORPUSCULAR HGB CONC 33.4 g/dL (32.4-35.8); MONOCYTES # (AUTO) 0.69 x10^3/uL (0.2-0.8); MONOCYTES % (AUTO) 6 % (2-9); NEUTROPHILS # (AUTO) 10.48 x10^3/uL (1.8-6.8); NEUTROPHILS % (AUTO) 85 % (42-75); PLATELET COUNT 512 x10^3/uL (130-400); RED BLOOD COUNT 3.09 x10^6/uL (3.82-5.3); RED CELL DISTRIBUTION WIDTH 14.3 % (9.6-15.2)
[2018-06-05 18:50] LABS: ALBUMIN 1.7 g/dL (3.4-5.0); ANION GAP 9 mmol/L (5-15); CALCIUM 7.6 mg/dL (8.5-10.1); CHLORIDE 108 mmol/L (98-107); CREATININE 1.36 mg/dL (0.55-1.02)
[2018-06-05 18:53] LABS: TROPONIN I < 0.015 ng/mL (0.000-0.045)
[2018-06-05 19:24] LABS: INTERNATIONAL NORMALIZED RATIO 1.23 (0.93-1.1); PROTHROMBIN TIME 12.9 Seconds (9.6-11.5)
[2018-06-05] MEDS: CEFTRIAXONE PMX 1GM/50ML 50 ML IVPB ONE ×2 (19:30→19:50)
[2018-06-05] MEDS ORDERED: CEFTRIAXONE PMX 1GM/50ML 50 ML ONE (19:48)
[2018-06-05 20:27] LABS: MICROSCOPIC AUTO
[2018-06-05 20:35] LABS: CULTURE INDICATED? YES
[2018-06-05] MEDS ORDERED: GUAIFENESIN/DM 200-20MG, 10ML UDC PO PRN (21:00)
[2018-06-05] MEDS ORDERED: SENNA/DOCUSATE TABLET PO PRN (21:00)
[2018-06-05] MEDS ORDERED: PHARMACY MAY ADJ FOR RENAL FX MC PRN (21:00)
[2018-06-05] MEDS ORDERED: SODIUM CHLORIDE FLUSH 10ML SYR IVF PRN (21:00)
[2018-06-05] MEDS: DOXYCYCLINE 100 MG in DEXTROSE 5% 250 ML IV SCH (23:22)
[2018-06-05] MEDS: FUROSEMIDE 20 MG/2 ML IV SCH (23:22)
[2018-06-05] MEDS: ISOSORBIDE DINITRATE 20 MG TABLET PO SCH (23:23)
[2018-06-05] MEDS: GABAPENTIN 300 MG CAPSULE PO SCH (23:23)
[2018-06-05] MEDS: ATORVASTATIN 20 MG TABLET PO SCH (23:23)
[2018-06-05 23:37] VITALS: BP 125/64
[2018-06-06] MEDS: FLUTICASONE NASAL SPRAY 16GM NAS SCH ×2 (00:24→20:47)
[2018-06-06 02:00] VITALS: BP 126/63
[2018-06-06 05:42] LABS: BASOPHILS # (AUTO) 0.07 x10^3/uL (0-0.1); BASOPHILS % (AUTO) 1 % (0-1); EOSINOPHILS # (AUTO) 0.21 x10^3/uL (0-0.4); EOSINOPHILS % (AUTO) 2 % (1-7); LYMPHOCYTES # (AUTO) 1.25 x10^3/uL (1-3.4); LYMPHOCYTES % (AUTO) 10 % (22-44); MD NO; MEAN CORPUSCULAR HEMOGLOBIN 29.4 pg (27.0-34.8); MEAN CORPUSCULAR HGB CONC 33.1 g/dL (32.4-35.8); MEAN CORPUSCULAR VOLUME 88.6 fL (80-100); MEAN PLATELET VOLUME 7.7 fL (7.4-10.4); MONOCYTES # (AUTO) 0.89 x10^3/uL (0.2-0.8); MONOCYTES % (AUTO) 7 % (2-9); NEUTROPHILS # (AUTO) 10.25 x10^3/uL (1.8-6.8); NEUTROPHILS % (AUTO) 81 % (42-75); PLATELET COUNT 588 x10^3/uL (130-400); RED CELL DISTRIBUTION WIDTH 14.3 % (9.6-15.2)
[2018-06-06 05:54] LABS: ANION GAP 9 mmol/L (5-15); CALCIUM 7.8 mg/dL (8.5-10.1); CHLORIDE 108 mmol/L (98-107); CREATININE 1.32 mg/dL (0.55-1.02)
[2018-06-06] MEDS: PANTOPROZOLE 40MG TABLET PO SCH (06:09)
[2018-06-06 06:57] VITALS: BP 108/54
[2018-06-06] MEDS: METOPROLOL SUCCINATE 25 MG TAB.ER.24H PO SCH (09:00)
[2018-06-06] MEDS ORDERED: METOPROLOL SUCCINATE 50 MG TAB.ER.24H ONE (09:16)
[2018-06-06] MEDS: DOXYCYCLINE 100 MG in DEXTROSE 5% 250 ML IV SCH ×2 (09:28→21:46)
[2018-06-06] MEDS: RIVAROXABAN 15 MG TABLET PO SCH (09:28)
[2018-06-06] MEDS: ASPIRIN 81 MG TABLET EC PO SCH (09:28)
[2018-06-06] MEDS: AMIODARONE 200 MG TABLET PO SCH (09:28)
[2018-06-06] MEDS: FLUOXETINE 10 MG CAP PO SCH (09:28)
[2018-06-06] MEDS: FUROSEMIDE 20 MG/2 ML IV SCH ×2 (09:28→20:46)
[2018-06-06] MEDS: POTASSIUM CHLORIDE 10 MEQ TABLET.ER PO SCH (09:28)
[2018-06-06] MEDS: LOSARTAN 50MG TABLET PO SCH (09:28)
[2018-06-06] MEDS: CYANOCOBALAMIN 1,000 MCG TABLET PEG SCH (09:29)
[2018-06-06] MEDS: ISOSORBIDE DINITRATE 20 MG TABLET PO SCH ×3 (09:29→20:46)
[2018-06-06] MEDS: LEVOTHYROXINE 50 MCG TABLET PO SCH (09:47)
[2018-06-06 12:26] VITALS: BP 87/46
[2018-06-06] MEDS ORDERED: NS + 20MEQ KCL 1,000 ML IV SCH (15:00)
[2018-06-06] MEDS ORDERED: CEFTRIAXONE 1,000 MG in SODIUM CHLORIDE 0.9% 50 ML IVPB SCH (19:30)
[2018-06-06 19:40] VITALS: BP 113/61
[2018-06-06] MEDS: CEFTRIAXONE PMX 1GM/50ML 50 ML IVPB SCH (19:48)
[2018-06-06] MEDS: ATORVASTATIN 20 MG TABLET PO SCH (20:47)
[2018-06-06] MEDS: GABAPENTIN 300 MG CAPSULE PO SCH (20:47)
[2018-06-07 02:00] VITALS: BP 135/67
[2018-06-07 05:09] LABS: CHLORIDE 109 mmol/L (98-107)
[2018-06-07 05:12] LABS: ANION GAP 8 mmol/L (5-15)
[2018-06-07] MEDS: LEVOTHYROXINE 50 MCG TABLET PO SCH (05:54)
[2018-06-07] MEDS: PANTOPROZOLE 40MG TABLET PO SCH (05:54)
[2018-06-07 07:26] VITALS: BP 105/54
[2018-06-07] MEDS: FUROSEMIDE 20 MG/2 ML IV SCH ×2 (09:00→20:27)
[2018-06-07] MEDS ORDERED: MAGNESIUM SULFATE PMX 2GM/50ML 50 ML IV ONE (09:00)
[2018-06-07] MEDS: METOPROLOL SUCCINATE 25 MG TAB.ER.24H PO SCH (09:10)
[2018-06-07] MEDS: ISOSORBIDE DINITRATE 20 MG TABLET PO SCH ×3 (09:10→20:28)
[2018-06-07] MEDS: CYANOCOBALAMIN 1,000 MCG TABLET PEG SCH (09:11)
[2018-06-07] MEDS: AMIODARONE 200 MG TABLET PO SCH (09:17)
[2018-06-07] MEDS: RIVAROXABAN 15 MG TABLET PO SCH (09:18)
[2018-06-07] MEDS: LOSARTAN 50MG TABLET PO SCH (09:18)
[2018-06-07] MEDS: FLUOXETINE 10 MG CAP PO SCH (09:18)
[2018-06-07] MEDS: ASPIRIN 81 MG TABLET EC PO SCH (09:18)
[2018-06-07] MEDS: POTASSIUM CHLORIDE 10 MEQ TABLET.ER PO SCH (09:18)
[2018-06-07] MEDS: DOXYCYCLINE 100 MG in DEXTROSE 5% 250 ML IV SCH ×2 (09:18→21:42)
[2018-06-07 14:15] VITALS: BP 117/55
[2018-06-07 20:04] VITALS: BP 127/67
[2018-06-07] MEDS: CEFTRIAXONE PMX 1GM/50ML 50 ML IVPB SCH (20:26)
[2018-06-07] MEDS: GABAPENTIN 300 MG CAPSULE PO SCH (20:27)
[2018-06-07] MEDS: ATORVASTATIN 20 MG TABLET PO SCH (20:27)
[2018-06-07] MEDS: FLUTICASONE NASAL SPRAY 16GM NAS SCH (20:28)
[2018-06-07] MEDS: DOXEPIN 25 MG CAPSULE PO PRN (22:25)
[2018-06-08 01:40] VITALS: BP 116/61
[2018-06-08] MEDS: PANTOPROZOLE 40MG TABLET PO SCH (06:02)
[2018-06-08] MEDS: LEVOTHYROXINE 50 MCG TABLET PO SCH (06:02)
[2018-06-08 06:47] VITALS: BP 127/63
[2018-06-08] MEDS: DOXYCYCLINE 100 MG in DEXTROSE 5% 250 ML IV SCH (10:02)
[2018-06-08] MEDS: METOPROLOL SUCCINATE 25 MG TAB.ER.24H PO SCH (10:03)
[2018-06-08] MEDS: CYANOCOBALAMIN 1,000 MCG TABLET PEG SCH (10:04)
[2018-06-08] MEDS: RIVAROXABAN 15 MG TABLET PO SCH (10:04)
[2018-06-08] MEDS: ASPIRIN 81 MG TABLET EC PO SCH (10:04)
[2018-06-08] MEDS: ISOSORBIDE DINITRATE 20 MG TABLET PO SCH ×3 (10:04→21:07)
[2018-06-08] MEDS: FLUOXETINE 10 MG CAP PO SCH (10:04)
[2018-06-08] MEDS: POTASSIUM CHLORIDE 10 MEQ TABLET.ER PO SCH (10:04)
[2018-06-08] MEDS: AMIODARONE 200 MG TABLET PO SCH (10:04)
[2018-06-08] MEDS: LOSARTAN 50MG TABLET PO SCH (10:04)
[2018-06-08] MEDS: FUROSEMIDE 20 MG/2 ML IV SCH ×2 (10:14→21:05)
[2018-06-08] MEDS ORDERED: SULF1TAB24 PO (13:05)
[2018-06-08 13:06] VITALS: BP 102/53
[2018-06-08 18:49] VITALS: BP 116/57
[2018-06-08] MEDS: GABAPENTIN 300 MG CAPSULE PO SCH (21:05)
[2018-06-08] MEDS: ATORVASTATIN 20 MG TABLET PO SCH (21:05)
[2018-06-08] MEDS: DOXYCYCLINE 100MG TABLET PO SCH (21:05)
[2018-06-08] MEDS: FLUTICASONE NASAL SPRAY 16GM NAS SCH (21:05)
[2018-06-08] MEDS: CEFTRIAXONE PMX 1GM/50ML 50 ML IVPB SCH (21:06)
[2018-06-09 00:30] VITALS: BP 115/55
[2018-06-09] MEDS: DOXEPIN 25 MG CAPSULE PO PRN (00:37)
[2018-06-09] MEDS: PANTOPROZOLE 40MG TABLET PO SCH (05:35)
[2018-06-09] MEDS: LEVOTHYROXINE 50 MCG TABLET PO SCH (05:35)
[2018-06-09 08:39] VITALS: BP 122/64
[2018-06-09] MEDS: RIVAROXABAN 15 MG TABLET PO SCH (08:40)
[2018-06-09] MEDS: FLUOXETINE 10 MG CAP PO SCH (08:40)
[2018-06-09] MEDS: LOSARTAN 50MG TABLET PO SCH (08:40)
[2018-06-09] MEDS: FUROSEMIDE 20 MG/2 ML IV SCH (08:40)
[2018-06-09] MEDS: AMIODARONE 200 MG TABLET PO SCH (08:40)
[2018-06-09] MEDS: ASPIRIN 81 MG TABLET EC PO SCH (08:41)
[2018-06-09] MEDS: POTASSIUM CHLORIDE 10 MEQ TABLET.ER PO SCH (08:41)
[2018-06-09] MEDS: METOPROLOL SUCCINATE 25 MG TAB.ER.24H PO SCH (08:41)
[2018-06-09] MEDS: CYANOCOBALAMIN 1,000 MCG TABLET PEG SCH (08:41)
[2018-06-09] MEDS: ISOSORBIDE DINITRATE 20 MG TABLET PO SCH (08:41)
[2018-06-09] MEDS: DOXYCYCLINE 100MG TABLET PO SCH (08:41)
== END 2018-06-09 14:58 | DRG 871 ==
LOC: ED 20:56 → 4EST 21:33
PROVIDERS: ADMIT Internal Medicine; ATTEND Family Medicine
DX: A41.9 Sepsis, unspecified organism (principal); J18.1 Lobar pneumonia, unspecified organism; J96.01 Acute respiratory failure with hypoxia; E43 Unspecified severe protein-calorie malnutrition; I50.43 Acute on chronic combined systolic (congestive) and diastolic (congestive) heart failure; I13.0 Hypertensive heart and chronic kidney disease with heart failure and stage 1 through stage 4 chronic kidney disease, or unspecified chronic kidney disease; N39.0 Urinary tract infection, site not specified; D64.9 Anemia, unspecified; E03.9 Hypothyroidism, unspecified; E78.00 Pure hypercholesterolemia, unspecified; F03.90 Unspecified dementia, unspecified severity, without behavioral disturbance, psychotic disturbance, mood disturbance, and anxiety; I48.91 Unspecified atrial fibrillation; N18.3 Chronic kidney disease, stage 3 (moderate); Z16.24 Resistance to multiple antibiotics; Z79.01 Long term (current) use of anticoagulants; Z86.73 Personal history of transient ischemic attack (TIA), and cerebral infarction without residual deficits; Z90.710 Acquired absence of both cervix and uterus; Z98.1 Arthrodesis status; Z68.28 Body mass index [BMI] 28.0-28.9, adult; Z79.82 Long term (current) use of aspirin; Z79.899 Other long term (current) drug therapy; Z90.49 Acquired absence of other specified parts of digestive tract
CPT/HCPCS: 36415; 71045; 80048; 81001; 82040; 83605; 83735; 83880; 84145; 84484; 85025; 85610; 85730; 87040; 87077; 87086; 87186; 93005; 99285; G0378; J0696; J3480; J7060; J1940; J3475

== ENCOUNTER 2018-07-11 17:35 | Observation (INO) | payer MEDICARE ==
[~2018-07-11] VITALS: Ht 162.6 cm; Wt 74.1 kg
[~2018-07-11 17:35] MED LIST changes: +LOSA100T14 PO; -LOSA100T7 PO; +SULF1TAB24 PO
[2018-07-11 18:20] LABS: BASOPHILS # (AUTO) 0.08 x10^3/uL (0-0.1); BASOPHILS % (AUTO) 1 % (0-1); EOSINOPHILS # (AUTO) 0.15 x10^3/uL (0-0.4); EOSINOPHILS % (AUTO) 2 % (1-7); LYMPHOCYTES # (AUTO) 1.17 x10^3/uL (1-3.4); LYMPHOCYTES % (AUTO) 19 % (22-44); MD NO; MEAN CORPUSCULAR HEMOGLOBIN 27.5 pg (27.0-34.8); MEAN CORPUSCULAR HGB CONC 32.8 g/dL (32.4-35.8); MEAN CORPUSCULAR VOLUME 83.7 fL (80-100); MEAN PLATELET VOLUME 7.8 fL (7.4-10.4); MONOCYTES # (AUTO) 0.46 x10^3/uL (0.2-0.8); MONOCYTES % (AUTO) 8 % (2-9); NEUTROPHILS # (AUTO) 4.21 x10^3/uL (1.8-6.8); NEUTROPHILS % (AUTO) 70 % (42-75); PLATELET COUNT 494 x10^3/uL (130-400); RED BLOOD COUNT 3.46 x10^6/uL (3.82-5.3); RED CELL DISTRIBUTION WIDTH 14.6 % (9.6-15.2)
[2018-07-11 18:26] LABS: ALANINE AMINOTRANSFERASE 23 U/L (12-78); ALBUMIN 2.4 g/dL (3.4-5.0); ANION GAP 7 mmol/L (5-15); CALCIUM 7.9 mg/dL (8.5-10.1); CHLORIDE 110 mmol/L (98-107); CREATININE 1.31 mg/dL (0.55-1.02)
[2018-07-11 18:30] LABS: ALKALINE PHOSPHATASE 149 U/L (45-117); BILIRUBIN,TOTAL 0.3 mg/dL (0.2-1.0); TROPONIN I < 0.015 ng/mL (0.000-0.045)
[2018-07-11 18:35] LABS: INTERNATIONAL NORMALIZED RATIO 1.87 (0.93-1.1); PROTHROMBIN TIME 19.4 Seconds (9.6-11.5)
--- NOTE | 2018-07-11 18:56 | NUR ---
PT REPOSITIONED IN BED, O2 PLACED ON PT VIA NC 2 L FOR 88% SATS
--- NOTE | 2018-07-11 19:12 | NUR ---
LATE NOTE: PT REPORTS SOB, INCREASINGLY WORSE SINCE DX OF PNA IN APR. CHEST X RAY FROM [facility] TODAY SHOWED LEFT SIDED PLEURAL EFFUSION. RM AIR SATS 88-90%. PT DENIES CP, DIMINISHED LUNG SOUNDS, NO ACUTE RESP DISTRESS AT THIS TIME.
--- NOTE | 2018-07-11 19:12 | NUR ---
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
--- NOTE | 2018-07-11 19:29 | NUR ---
REPORT TO JORDAN ESTRADA. PT READY FOR TRANSPORT.
[2018-07-11] MEDS ORDERED: GABAPENTIN 300 MG CAPSULE PO PRN (20:00)
[2018-07-11] MEDS ORDERED: DOCUSATE 100 MG CAPSULE PO PRN (20:00)
[2018-07-11] MEDS ORDERED: TRAZODONE 50MG TABLET PO PRN (20:00)
[2018-07-11] MEDS ORDERED: ONDANSETRON ODT 4 MG PO PRN (20:00)
[2018-07-11] MEDS ORDERED: LIDODERM 5% PATCH TD PRN (20:00)
[2018-07-11] MEDS ORDERED: hydrALAzine 20 MG/ML, 1ML IVPush PRN (20:00)
[2018-07-12 00:57] VITALS: BP 115/67
[2018-07-12 06:31] VITALS: BP 143/68
[2018-07-12] MEDS ORDERED: LIDOCAINE-MPF 1%, 5ML ONE (07:54)
[2018-07-12] MEDS ORDERED: DOXEPIN 25 MG CAPSULE PO PRN (10:00)
[2018-07-12] MEDS: BENZONATATE 100 MG CAPSULE PO SCH ×2 (10:15→16:37)
[2018-07-12] MEDS ORDERED: POTASSIUM CHLORIDE 10 MEQ TABLET.ER PO SCH (11:00)
[2018-07-12] MEDS ORDERED: FUROSEMIDE 20 MG TABLET PO SCH (11:00)
[2018-07-12] MEDS ORDERED: PANTOPROZOLE 40MG TABLET PO SCH (11:00)
[2018-07-12 12:39] VITALS: BP 128/56
[2018-07-12] MEDS ORDERED: RIVA15TA PO (13:50)
[2018-07-12] MEDS ORDERED: ISOSORBIDE DINITRATE 20 MG TABLET PO SCH (16:00)
[2018-07-12] MEDS ORDERED: FLUTICASONE NASAL SPRAY 16GM NAS SCH (21:00)
[2018-07-12] MEDS ORDERED: GABAPENTIN 300 MG CAPSULE PO SCH (21:00)
[2018-07-12] MEDS ORDERED: ATORVASTATIN 20 MG TABLET PO SCH (21:00)
[2018-07-13] MEDS ORDERED: LEVOTHYROXINE 50 MCG TABLET PO SCH (06:00)
[2018-07-13] MEDS ORDERED: AMIODARONE 200 MG TABLET PO SCH (09:00)
[2018-07-13] MEDS ORDERED: FLUOXETINE 10 MG CAP PO SCH (09:00)
[2018-07-13] MEDS ORDERED: METOPROLOL SUCCINATE 50 MG TAB.ER.24H PO SCH (09:00)
[2018-07-13] MEDS ORDERED: LOSARTAN 50MG TABLET PO SCH (09:00)
[2018-07-13] MEDS ORDERED: RIVAROXABAN 15 MG TABLET PO SCH (09:00)
[2018-07-13] MEDS ORDERED: CYANOCOBALAMIN 1,000 MCG TABLET PEG SCH (09:00)
[2018-07-13] MEDS ORDERED: ASPIRIN 81 MG TABLET EC PO SCH (09:00)
== END 2018-07-12 18:39 | disposition home or self-care (01) ==
LOC: ED 18:04 → EDIP 18:45 → INTOOBSV 18:45 → 4NOR 19:58
PROVIDERS: ADMIT Internal Medicine; ATTEND Internal Medicine
DX: J90 Pleural effusion, not elsewhere classified (principal); D50.9 Iron deficiency anemia, unspecified; E03.9 Hypothyroidism, unspecified; E78.00 Pure hypercholesterolemia, unspecified; F03.90 Unspecified dementia, unspecified severity, without behavioral disturbance, psychotic disturbance, mood disturbance, and anxiety; F33.0 Major depressive disorder, recurrent, mild; I13.0 Hypertensive heart and chronic kidney disease with heart failure and stage 1 through stage 4 chronic kidney disease, or unspecified chronic kidney disease; I50.32 Chronic diastolic (congestive) heart failure; N18.3 Chronic kidney disease, stage 3 (moderate); J18.1 Lobar pneumonia, unspecified organism; I48.91 Unspecified atrial fibrillation; Z87.440 Personal history of urinary (tract) infections
CPT/HCPCS: 32555; 36415; 71045; 80053; 82945; 83615; 83880; 83986; 84157; 84484; 85025; 85610; 85730; 87070; 87075; 87205; 88112; 88305; 89051; 93005; 97161; 99284; G0378

== ENCOUNTER 2019-10-30 20:31 | Emergency (ER) | payer MEDICARE ==
[~2019-10-30] VITALS: Ht 165.1 cm; Wt 81.8 kg
[~2019-10-30 20:31] MED LIST changes: +CYAN100028 PO; +FLUO10CA14 PO; -FLUO10CA7 PO; +FLUT15.845 NAS; -FLUT15.88 NAS; +OMEP-110 PO; +[UNRECOGNIZED DRUG - CODE]
--- NOTE | 2019-10-30 20:53 | NUR ---
Report received and care assumed. Pt in CT via [facility]. RN to assess upon return.
--- NOTE | 2019-10-30 21:04 | NUR ---
Pt returned from CT. Pt moving all extremities. 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 Pupils WHITLEY. Pt able to state she knows she fell tonight. Otherwise unable to answer questions appropriately. Tech at bedside for EKG. Per ERP, ok to wait for UA. No minicath at this time. Call light in reach.
[2019-10-30] MEDS ORDERED: ISOS10TA2 PO (21:13)
[2019-10-30] MEDS ORDERED: CETI10TA18 PO (21:13)
[2019-10-30] MEDS ORDERED: TRAM50TA2 PO (21:13)
[2019-10-30] MEDS ORDERED: MELA5TAB21 PO (21:13)
[2019-10-30] MEDS ORDERED: GABA100C PO (21:13)
[2019-10-30 21:44] LABS: BASOPHILS # (AUTO) 0.02 x10^3/uL (0-0.1); BASOPHILS % (AUTO) 0 % (0-1); EOSINOPHILS # (AUTO) 0.11 x10^3/uL (0-0.4); EOSINOPHILS % (AUTO) 2 % (1-7); LYMPHOCYTES # (AUTO) 1.29 x10^3/uL (1-3.4); LYMPHOCYTES % (AUTO) 17 % (22-44); MD NO; MEAN CORPUSCULAR HEMOGLOBIN 30.6 pg (27.0-34.8); MEAN CORPUSCULAR HGB CONC 32.8 g/dL (32.4-35.8); MEAN CORPUSCULAR VOLUME 93.4 fL (80-100); MEAN PLATELET VOLUME 8.5 fL (7.4-10.4); MONOCYTES % (AUTO) 8 % (2-9); NEUTROPHILS # (AUTO) 5.76 x10^3/uL (1.8-6.8); NEUTROPHILS % (AUTO) 74 % (42-75); PLATELET COUNT 226 x10^3/uL (130-400); RED BLOOD COUNT 4.29 x10^6/uL (3.82-5.3); RED CELL DISTRIBUTION WIDTH 14.8 % (9.6-15.2)
[2019-10-30 21:57] LABS: ALBUMIN 3.1 g/dL (3.4-5.0); ANION GAP 6 mmol/L (5-15); CALCIUM 8.7 mg/dL (8.5-10.1); CHLORIDE 111 mmol/L (98-107); CREATININE 2.06 mg/dL (0.55-1.02)
--- NOTE | 2019-10-30 22:02 | NUR ---
Discussed UA with pt. Pt agrees to [employer]--does not feel she can produce clean sample. Ua collected by minicath using sterile technique. Pt tolerated well. Pt repositioned for comfort. Upon repositioning, rash noted from midline back to L side. Pt states its been there for a month. Rash appeared scabbed and healing. ERP in to assess and states it is likely healing shingles. Pt states that sounds familiar. Warm blanket given. 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 Call light in reach.
[2019-10-30 22:15] LABS: MICROSCOPIC AUTO
[2019-10-30 22:16] LABS: CULTURE INDICATED? YES
--- NOTE | 2019-10-30 22:54 | NUR ---
Pt attempting PO trial. Able to tolerate well. Per ERP, pt to drink fluids s/t mild dehydration. Pt to be d/c back to [facility]. VSS. No acute changes. Call light in reach.
--- NOTE | 2019-10-30 23:38 | NUR ---
PT TOLERATING PO FLUIDS. NO ACUTE CHANGES NOTED. CALLED AND SPOKE WITH DAVID, PT'S SON. DAVID UPDATED ON POC AND AGREES. CALLED AND SPOKE WITH GIANCARLO AT [facility] AND CAREGIVER WAS UPDATED WITH POC AND TEST RESULTS. GIANCARLO STATES THEY ARE READY TO RECEIVE PT BACK. [facility] TRANSPORT SET UP FOR 0015. PT AWARE. CALL LIGHT IN REACH.
[2019-10-30 23:53] VITALS: BP 137/90
== END 2019-10-30 23:55 | disposition home or self-care (01) ==
LOC: ED 21:00
DX: S09.90XA Unspecified injury of head, initial encounter (principal); M54.9 Dorsalgia, unspecified; E86.0 Dehydration; I45.10 Unspecified right bundle-branch block; I48.91 Unspecified atrial fibrillation; R42 Dizziness and giddiness; E78.00 Pure hypercholesterolemia, unspecified; E03.9 Hypothyroidism, unspecified; I11.0 Hypertensive heart disease with heart failure; I50.9 Heart failure, unspecified; Z86.73 Personal history of transient ischemic attack (TIA), and cerebral infarction without residual deficits; Z90.49 Acquired absence of other specified parts of digestive tract; Z90.710 Acquired absence of both cervix and uterus; W01.0XXA Fall on same level from slipping, tripping and stumbling without subsequent striking against object, initial encounter; Y93.89 Activity, other specified; Y92.89 Other specified places as the place of occurrence of the external cause; Y99.8 Other external cause status
CPT/HCPCS: 36415; 70450; 72125; 80048; 81001; 82040; 85025; 87086; 93005; 99285